=== PATIENT | male | born 2000 | race Caucasian/White ===

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

== ENCOUNTER 2018-01-07 10:20 | Emergency (ER) | payer SELFPAY ==
[~2018-01-07] VITALS: Ht 180.3 cm; Wt 104.3 kg
[~2018-01-07 10:20] MED LIST changes: +NAPR-1071 PO
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
== END 2018-01-07 11:00 | disposition home or self-care (01) ==
LOC: EDUNIT# 10:20 → ER 10:22
DX: S60.221A Contusion of right hand, initial encounter (principal); J45.909 Unspecified asthma, uncomplicated; Z90.49 Acquired absence of other specified parts of digestive tract; Z90.89 Acquired absence of other organs; Z87.81 Personal history of (healed) traumatic fracture; Z87.19 Personal history of other diseases of the digestive system; Z98.818 Other dental procedure status; Z77.22 Contact with and (suspected) exposure to environmental tobacco smoke (acute) (chronic); W22.09XA Striking against other stationary object, initial encounter
CPT/HCPCS: 73130

== ENCOUNTER 2018-05-13 10:10 | Emergency (ER) | payer SELFPAY ==
[~2018-05-13 10:10] MED LIST changes: -BENZ-13 PO; +BENZ100C18 PO
== END 2018-05-13 10:59 | disposition left against medical advice (07) ==
LOC: EDUNIT# 10:10 → ER 10:11
DX: M54.9 Dorsalgia, unspecified (principal)

== ENCOUNTER 2018-05-30 08:01 | Emergency (ER) | payer SELFPAY ==
[~2018-05-30] VITALS: Ht 180.3 cm; Wt 104.3 kg
[2018-05-30] MEDS ORDERED: GABA-488 (08:21)
[2018-05-30] MEDS ORDERED: NAPR-915 (08:21)
--- NOTE | 2018-05-30 08:44 | ED Integumentary General ---
General Chief Complaint: General Problems/Pain Stated Complaint: LIP SWELLING Nursing Triage Note: ARRIVED VIA AMB TO ROOM 06. STATES HE POPPED A PIMPLE ABOVE HIS LIP YESTERDAY AND IT KEEPS COMING TO A BROTHERS. TODAY HE WOKE UP WITH A SWOLLEN UPPER LIP. Source: patient Exam Limitations: no limitations History of Present Illness Date Seen by Provider: May 30, 2018 Time Seen by Provider: 08:42 Initial Comments The patient is a 17-year-old white male who reports that he had what appeared to be a pimple on his upper lip above the vermilion border. This was mostly in the midline. He popped it and yellow material came out. This recurred several times yesterday and he repeated the process. This morning when he awakened he noted pain and considerable swelling of his upper lip. There did not appear to be a head this morning. Timing/Duration: yesterday Possible Cause: no cause identified Associated Symptoms: swelling/mass/lumps Allergies and Home Medications Allergies Coded Allergies: hydrocodone (Verified Allergy, Severe, RASH , 05/30/18) Patient Home Medication List Home Medication List Reviewed: Yes Review of Systems Review of Systems Constitutional: see HPI EENTM: see HPI Skin: see HPI Past Flqufmt-Qkxeba-Ybxypn Hx Patient Social History Alcohol Use: Rarely Uses Alcohol Beverage of Choice: Beer Recreational Drug Use: Yes Drug of Choice: POT 2nd Hand Smoke Exposure: No (MOM SMOKES) Recent Foreign Travel: No Contact w/Someone Who Travel: No Recent Infectious Disease Expo: No Recent Hopitalizations: No Immunizations Up To Date Tetanus Booster (TDap): Less than 5yrs PED Vaccines UTD: Yes Date of Influenza Vaccine: Apr 01, 2016 Seasonal Allergies Seasonal Allergies: Yes Past Medical History Surgeries: Yes (DENTAL SURGERY TODDLER. hematoma evacuation 09/29/[address] marcano.) Adenoidectomy, Appendectomy, Tonsillectomy Respiratory: Yes Asthma Cardiac: No Neurological: No Reproductive Disorders: No Sexually Transmitted Disease: No Genitourinary: No Gastrointestinal: No Chronic Constipation Musculoskeletal: No Fractures Endocrine: No HEENT: No Tonsilitis Cancer: No Psychosocial: No Integumentary: No Blood Disorders: No Family Medical History Family history: Diabetes mellitus grandmother paternal aunt aunt uncle paternal No Pertinent Family Hx Physical Exam Vital Signs Vital Signs - First Documented 05/30/18 08:10 Temp 99.2 Pulse 84 Resp 18 B/P (MAP) 145/90 O2 Delivery Room Air Capillary Refill : General Appearance: mild distress Neck: full range of motion Cardiovascular: normal peripheral pulses, regular rate, rhythm, no edema, no gallop, no JVD, no murmur Respiratory: chest non-tender, lungs clear, normal breath sounds, no respiratory distress, no accessory muscle use Comments There is a nodule palpated in the upper lip just left of the midline about the size of a grape. There is a punctate area consistent with his drainage attempts yesterday. The upper lip is quite swollen in the vermilion portion. Procedures/Interventions I&D : Site: mid upper lip Blade Size: 11 I & D Procedure: betadine prep Packing/Drain: Idoform 07/05 Progress The lip was prepped with Hibiclens. It was injected with 3 mL of 1 percent Xylocaine and a 25-gauge needle. A vertically oriented small incision was made with an 11 scalpel blade. The opening was enlarged with a hemostat. A minimum of hemo-purulent material was obtained. The wound was swabbed for culture. One plus inch of iodoform, 1/4 inch, was placed in the wound. Progress/Results/Core Measures Results/Orders My Orders Orders - EDMAR BAR MD Ibuprofen Tablet (Motrin Tablet) (05/30/18 09:15) Lidocaine 1% Inj 20 Ml (Xylocaine 1% Inj (05/30/18 09:45) Ceftriaxone For Iv Use (Rocephin For I (05/30/18 10:15) Medications Given in ED Current Medications Medications Dose Ordered Sig/Maria Ines Route Start Time Stop Time Status Last Admin Dose Admin Ibuprofen 600 mg ONCE ONCE PO 05/30/18 09:15 05/30/18 09:16 DC 05/30/18 09:23 600 MG Lidocaine HCl 20 ml ONCE ONCE INJ 05/30/18 09:45 05/30/18 09:47 DC 05/30/18 10:13 3 ML Vital Signs/I&O 05/30/18 08:10 Temp 99.2 Pulse 84 Resp 18 B/P (MAP) 145/90 O2 Delivery Room Air Departure Impression Primary Impression: abscess/cellulitis upper lip Disposition: 01 HOME, SELF-CARE Condition: Improved Departure-Patient Inst. Decision time for Depature: 10:15 Referrals: PEYTON PAIGE MD (PCP/Family) Primary Care Physician Add. Discharge Instructions: All discharge instructions reviewed with patient and/or family. Voiced understanding. Apply warm compress to wound 4 times a day. Begin oral antibiotics tomorrow. If swelling increases appreciably or if you began to have occlusion at the nose return to the emergency room. Scripts Cefdinir (Cefdinir) 300 Mg Capsule 300 MG PO twice a day, #14 CAP Prov: EDMAR BAR MD 05/30/18 EDMAR BAR MD May 30, 2018 08:44
[2018-05-30] MEDS ORDERED: IBUPROFEN 600 MG (MOTRIN) TAB PO ONE (09:15)
[2018-05-30] MEDS ORDERED: LIDOCAINE 1% INJ 20 ML 20 ML VIAL INJ ONE (09:45)
[2018-05-30] MEDS ORDERED: cefTRIAXone FOR IV USE 1,000 MG in NS (IVPB) 50 ML IV ONE (10:15)
[2018-05-30] MEDS ORDERED: CEFD300C3 PO (10:19)
[2018-05-31] MEDS ORDERED: SULF1TAB35 PO (11:06)
== END 2018-05-30 11:12 | disposition home or self-care (01) ==
LOC: ER 08:01 → EDUNIT# 08:01 → ER 11:12
DX: K13.0 Diseases of lips (principal); J45.909 Unspecified asthma, uncomplicated; F12.10 Cannabis abuse, uncomplicated; Z88.5 Allergy status to narcotic agent; Z90.89 Acquired absence of other organs; Z87.19 Personal history of other diseases of the digestive system
CPT/HCPCS: 10061; 87070; 87077; 87186; 87205; 96372

== ENCOUNTER 2018-05-31 09:26 | Emergency (ER) | payer SELFPAY ==
[~2018-05-31] VITALS: Ht 182.9 cm; Wt 104.3 kg
[~2018-05-31 09:26] MED LIST changes: +GABA-488; +NAPR-915
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
--- OUTSIDE RECORDS SUMMARY | 2018-05-31 09:32 | XMS REPORT ---
Author Author MARCOS CALDWELL Organization [facility] Address [address] [place] [address] Phone Unavailable Care Team Providers Care Care Nurse Rn Name Role Phone MARCOS CALDWELL Unavailable Unavailable PROBLEMS Type Condition ICD9-CM Code DQR97-RT Code Onset Dates Condition Status SNOMED Code Problem Obesity, unspecified 278.00 Active [id number] ALLERGIES No Known Allergies ENCOUNTERS Encounter Location Date Diagnosis [facility] [id number] [place] [address] October, Ear pain, left H92.02 [facility] [id number] [place] [address] Sep, Sore throat J02.9 [facility] [id number] [place] [address] Jun, Acute upper respiratory infection, unspecified J06.9 ; Other viral agents as the cause of diseases classified elsewhere B97.89 and Sore throat J02.9 [place] [id number] [place] [address] 9134 Dec, Pain of right lower leg 729.5 [id number] [place] [address] 10049- 8230 Dec, Pain of right lower leg 729.5 [id number] [place] [address]123- 6882 Dec, Right leg pain 729.5 [id number] [place] [address]- 1201 Dec, Exertional compartment syndrome of right lower extremity 958.92 and Pain of right lower leg 729.5 [id number] [place] [address] 7312 Sep, [facility] [place] [facility] [address] [id number] [place] [address]- 4321 Sep, [facility] [place] [facility] [address] [id number] [place] [address]- 7897 Jun, [facility] [place] [facility] [address] [id number] [place] [address] Jun, [facility] [place] [facility] [address] [id number] [place] [address]- 4197 May, [facility] [place] [facility] [address] [id number] [place] [address]- 6923 May, [facility] [place] [facility] [address] [id number] [place] [address]- 0332 Dec, [facility] [place] [facility] [address] [facility] [id number] [place] [address]- 7512 Dec, [facility] [place] [facility] [address] [id number] [place] [address]- 3759 Dec, [facility] [place] [facility] [address] [id number] [place] [address]- 3570 Dec, [facility] [place] [facility] [address] [facility] [id number] [place] [address]- 2691 Nov, [facility] [place] [facility] [address] [id number] [place] [address]- 8168 Nov, [facility] [place] [facility] [address] [id number] [place] [address]- 9798 Nov, [facility] [place] [facility] [address] [id number] [place] [address]- 6325 Nov, [facility] [place] [facility] [address] [id number] [place] [address]- 3052 Aug, [facility] [place] [facility] [address] [id number] [place] [address]- 2940 Aug, [facility] [place] [facility] [address] [id number] [place] [address]- 6337 May, [facility] [address] [id number] [place] [address]- 8846 May, [facility] [place] [facility] [address] [id number] [place] [address] 2546 Jan, [facility] [place] [facility] [address] [id number] [place] [address]- 2326 October, [facility] [place] [facility] [address] [id number] [place] [address]- 5437 Sep, [facility] [place] [facility] [address] [id number] [place] [address]- 5560 Aug, [facility] [place] [facility] [address] [id number] [place] [address]- 7930 Jul, [facility] [address] [id number] [place] [address]- 9070 Jul, [facility] [address] [id number] [place] [address]- 5360 Jul, [facility] [place] [facility] [address] [id number] [place] [address]- 9770 October, [facility] [address] [id number] [place] [address]- 5245 Sep, [facility] [address] [id number] [place] [address]- 8756 Aug, [facility] [place] [facility] [address] [id number] [place] [address]- 2993 Mar, [facility] [place] [facility] [address] [id number] [place] [address]- 0121 Jan, [facility] [place] [facility] [address] [id number] [place] [address]- 8082 Jul, [facility] [place] [facility] [address] [id number] [place] [address]- 4516 Mar, [facility] [address] [facility] [id number] [place] [address]- 7574 October, [facility] [address] [facility] [id number][place] [address]- 5526 Jun, [facility] [address] [facility] [id number][place] [address]- 6046 Jun, [facility] [address] [facility] [id number][place] [address]- 6566 Aug, [facility] [address] [facility] [id number][place] [address]- 3766 May, [facility] [address] [facility] [id number][place] [address]- 3126 May, IMMUNIZATIONS No Known Immunizations SOCIAL HISTORY Never Assessed REASON FOR VISIT sore throat/sinus pressure x 3 days, denies fever sanjay daugherty PLAN OF CARE Activity Details Follow Up prn Reason: VITAL SIGNS Height 70 in 2017-10-08 Weight 253.6 lbs 2017-10-08 Temperature 97.6 degrees Fahrenheit 2017-10-08 Heart Rate 68 bpm 2017-10-08 Respiratory Rate 18 2017-10-08 BMI 36.38 kg/m2 2017-10-08 Blood pressure systolic 118 mmHg 2017-10-08 Blood pressure diastolic 66 mmHg 2017-10-08 MEDICATIONS Medication Instructions Dosage Frequency Start Date End Date Duration Status Amoxicillin 875 MG Orally every 12 hrs 1 tablet 12h Sep, Sep, 10 day(s) Active Sudafed 12 Hour 120 MG Orally once daily 1 tablet as needed 24h Jun, 07 days Not-Taking RESULTS Name Result Date Reference Range STREP A (IN HOUSE) 2017-10-08 STREP A negative Control + Lot # [id number] Exp date 04/12/20 PROCEDURES Procedure Date Ordered Result Body Site STREP A ASSAY W/OPTIC October 08, 2017 INSTRUCTIONS MEDICATIONS ADMINISTERED No Known Medications MEDICAL (GENERAL) HISTORY Type Description Date Surgical History tonsils and adnoids out 2001 Surgical History dental surgery 2002 Surgical History appendectomy 2016 Hospitalization History pnemonia-- more observation stayed 2 nights 2013
--- OUTSIDE RECORDS SUMMARY | 2018-05-31 09:32 | XMS REPORT ---
Author Author DUSTY MENESES Organization [facility] Address [address] [place] [address] Care Team Providers Care Sock Lining Examiner Name Role Phone ZAIRA DUSTY Unavailable PROBLEMS Type Condition ICD9-CM Code XJP59-XL Code Onset Dates Condition Status SNOMED Code Problem Obesity, unspecified 278.00 Active 250227801 ALLERGIES No Known Allergies ENCOUNTERS Encounter Location Date Diagnosis [facility] [id number] [place] [address] October, Ear pain, left H92.02 [facility] [id number] [place] [address] Sep, Sore throat J02.9 [facility] [id number] [place] [address]65 [address]72 Jun, Acute upper respiratory infection, unspecified J06.9 ; Other viral agents as the cause of diseases classified elsewhere B97.89 and Sore throat J02.9 [place] [address] [place] [address]31- 2142 Dec, Pain of right lower leg 729.5 [place] [id number] [place] [address]24- 5484 Dec, Pain of right lower leg 729.5 [place] [id number] [place] [address] 73896- 3435 Dec, Right leg pain 729.5 [place] [place] [address] [place] [address] 35930- 0039 Dec, Exertional compartment syndrome of right lower extremity 958.92 and Pain of right lower leg 729.5 [place] [id number] [place] [address]- 79[address] 14 Sep, 2014 [facility] [address] [id number] [place] [address]- 1355 Sep, [facility] [place] [facility] [address] [id number] [place] [address] Jun, [facility] [address] [id number] [place] [address]- 6946 Jun, [facility] [place] [facility] [address] [id number] [place] [address]- 3307 May, [facility] [address] [id number] [place] [address]- 8512 May, [facility] [place] [facility] [address] [id number] [place] [address]- 3557 Dec, [facility] [place] [facility] [address] [id number] [place] [address]- 1055 Dec, [facility] [place] [facility] [address] [id number] [place] [address]- 6351 Dec, [facility] [place] [facility] [address] [id number] [place] [address]- 6803 Dec, [facility] [address] [id number] [place] [address]- 6384 Nov, [facility] [place] [facility] [address] [id number] [place] [address]- 5968 Nov, [facility] [place] [facility] [address] [id number] [place] [address]- 1856 Nov, [facility] [place] [facility] [address] [id number] [place] [address]- 2255 Nov, [facility] [place] [facility] [address] [id number] [place] [address]- 6983 Aug, [facility] [place] [facility] [address] [id number] [place] [address]- 5083 Aug, [facility] [address] [id number] [place] [address]- 9413 May, [facility] [place] [facility] [address] [id number] [place] [address]- 7726 May, [facility] [address] [id number] [place] [address]- 2396 Jan, [facility] [place] [facility] [address] [id number] [place] [address]- 0836 October, [facility] [address] [id number] [place] [address]- 1556 Sep, [facility] [place] [facility] [address] [id number] [place] [address]- 4466 Aug, [facility] [place] [facility] [address] [id number] [place] [address]- 8236 Jul, [facility] [address] [id number] [place] [address]- 1226 Jul, [facility] [address] [id number] [place] [address]- 9875 Jul, [facility] [address] [id number] [place] [address]- 6416 October, [facility] [address] [id number] [place] [address]- 2326 Sep, [facility] [place] [facility] [address] [id number] [place] [address]- 2086 Aug, [facility] [place] [facility] [address] [id number] [place] [address]- 3416 Mar, [facility] [place] [facility] [address] [id number] [place] [address]- 8186 Jan, [facility] [place] [facility] [address] [id number] [place] [address]- 0096 Jul, [facility] [place] [facility] [address] [id number] [address] 15 Mar, 2009 [facility] [address] [facility] [id number], [place] [address]- 7628 October, [facility] [address] [id number] [address]345 Jun, [facility] [address] [id number], [place] [address]- 3143 Jun, [facility] [address] [id number], [place] [address]- 2934 Aug, [facility] [address] [id number] [address] May, [facility] [address] [id number] [address]- 4522 May, IMMUNIZATIONS No Known Immunizations SOCIAL HISTORY Never Assessed REASON FOR VISIT Ear pain Pt c/o L ear pain for 2-3 days SKYLA Esqueda PLAN OF CARE Activity Details Follow Up prn Reason: VITAL SIGNS Height 70 in 2017-11-22 Weight 251.2 lbs 2017-11-22 Temperature 97.1 degrees Fahrenheit 2017-11-22 Heart Rate 76 bpm 2017-11-22 Respiratory Rate 18 2017-11-22 BMI 36.04 kg/m2 2017-11-22 Blood pressure systolic 116 mmHg 2017-11-22 Blood pressure diastolic 64 mmHg 2017-11-22 MEDICATIONS Medication Instructions Dosage Frequency Start Date End Date Duration Status Sudafed 12 Hour 120 MG Orally once daily 1 tablet as needed 24h Jun, 07 days Not-Taking RESULTS No Results PROCEDURES No Known procedures INSTRUCTIONS MEDICATIONS ADMINISTERED No Known Medications MEDICAL (GENERAL) HISTORY Type Description Date Surgical History tonsils and adnoids out 2001 Surgical History dental surgery 2002 Surgical History appendectomy 2016 Hospitalization History pnemonia-- more observation stayed 2 nights 2013
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
[2018-05-31] MEDS ORDERED: ACETAMINOPHEN 500 MG TAB (TYLENOL) PO ONE (10:45)
[2018-05-31] MEDS ORDERED: TRIM/SULFAMETH 160/800 (SEPTRA DS) TAB PO ONE (10:45)
[2018-05-31] MEDS ORDERED: IBUPROFEN 800 MG (MOTRIN) TAB PO ONE (10:45)
--- NOTE | 2018-05-31 10:55 | ED Integumentary General ---
General Chief Complaint: Skin/Wound Problems Stated Complaint: LIP SWELLING;WOUND CHECK Nursing Triage Note: WAS SEEN HERE YESTERDAY BY DR BAR ET PUT ON A ABX AND PAIN MEDS. PT STATES THE PAIN IS NOT GETTING BETTER AND HE THINKS HIS LIP IS MORE SWOLLEN. PT HAS NOT HAD ANY OF HIS MEDS FILLED. Source: patient, old records Exam Limitations: no limitations History of Present Illness Date Seen by Provider: May 31, 2018 Time Seen by Provider: 10:37 Initial Comments This 17-year-old young man presents to the emergency room with worsening symptoms of upper lip abscess. He was seen in this ER yesterday by Dr. Bar who performed incision and drainage. Not much material came from the wound at that time. Wound had been packed yesterday. Packing fell out in the night. Patient was doing some warm compresses but the opening to the wound dried and closed off. He now complains of worsening swelling of the area under his nose where the abscesses as well as his upper lip. He has no fever. Pain is not well controlled. Patient received an injection of Rocephin in the ER yesterday. He had prescriptions for Cefdinir and pain medications but did not fill those due to financial constraints. A culture was performed yesterday but results are not available yet. Allergies and Home Medications Allergies Coded Allergies: hydrocodone (Verified Allergy, Severe, RASH , 05/30/18) Home Medications Cefdinir 300 Mg Capsule, 300 MG PO twice a day Prescribed by: EDMAR BAR on 05/30/18 1019 Sulfamethoxazole/Trimethoprim 1 Each Tablet, 1 EACH PO TID Prescribed by: JENNIFER LOPEZ on 05/31/18 1106 Patient Home Medication List Home Medication List Reviewed: Yes Review of Systems Review of Systems Constitutional: no symptoms reported EENTM: see HPI Respiratory: no symptoms reported Cardiovascular: no symptoms reported Gastrointestinal: no symptoms reported Genitourinary: no symptoms reported Musculoskeletal: no symptoms reported Skin: see HPI Psychiatric/Neurological: No Symptoms Reported Endocrine: No Symptoms Reported Hematologic/Lymphatic: No Symptoms Reported Past Kzabfqz-Laetqn-Nqntig Hx Patient Social History Alcohol Use: Denies Use Alcohol Beverage of Choice: Beer Recreational Drug Use: Yes Drug of Choice: POT 2nd Hand Smoke Exposure: No (MOM SMOKES) Recent Foreign Travel: No Contact w/Someone Who Travel: No Recent Infectious Disease Expo: No Recent Hopitalizations: No Immunizations Up To Date Tetanus Booster (TDap): Less than 5yrs PED Vaccines UTD: Yes Date of Influenza Vaccine: Apr 01, 2016 Seasonal Allergies Seasonal Allergies: Yes Past Medical History Surgeries: Yes (DENTAL SURGERY TODDLER. hematoma evacuation 09/29/[address] marcano.) Adenoidectomy, Appendectomy, Tonsillectomy Respiratory: Yes Asthma Cardiac: No Neurological: No Reproductive Disorders: No Sexually Transmitted Disease: No Genitourinary: No Gastrointestinal: No Chronic Constipation Musculoskeletal: No Fractures Endocrine: No HEENT: No Tonsilitis Cancer: No Psychosocial: No Integumentary: No Blood Disorders: No Family Medical History Family history: Diabetes mellitus grandmother paternal aunt aunt uncle paternal No Pertinent Family Hx Physical Exam Vital Signs Vital Signs - First Documented 05/31/18 05/31/18 09:33 12:02 Temp 98.5 Pulse 87 Resp 16 B/P (MAP) 139/75 Pulse Ox 98 O2 Delivery Room Air Capillary Refill : General Appearance: WD/WN, no apparent distress HEENT: PERRL/EOMI, other (Indurated abscess between the upper lip and nose. Edema of the upper lip.) Neck: normal inspection Cardiovascular: regular rate, rhythm, no murmur Respiratory: normal breath sounds, no respiratory distress Skin: normal color, warm/dry, other (See above) Progress/Results/Core Measures Results/Orders My Orders Orders - JENNIFER FISHER MD Ibuprofen Tablet (Motrin Tablet) (05/31/18 10:45) Acetaminophen Tablet (Tylenol Tablet) (05/31/18 10:45) Sulfamethoxazole/Trimet Ds Tab (Bactrim (05/31/18 10:45) Clindamycin Injection (Cleocin Injection (05/31/18 11:00) Mupirocin Ointment (Bactroban Ointment (05/31/18 21:00) Mupirocin Ointment (Bactroban Ointment (05/31/18 11:57) Medications Given in ED Current Medications Medications Dose Ordered Sig/Maria Ines Route Start Time Stop Time Status Last Admin Dose Admin Acetaminophen 1,000 mg ONCE ONCE PO 05/31/18 10:45 05/31/18 10:46 DC 05/31/18 10:53 1,000 MG Clindamycin Phosphate 600 mg ONCE ONCE IM 05/31/18 11:00 05/31/18 11:01 DC 05/31/18 11:10 600 MG Ibuprofen 800 mg ONCE ONCE PO 05/31/18 10:45 05/31/18 10:47 DC 05/31/18 10:54 800 MG Trimethoprim/ Sulfamethoxazole 1 ea ONCE ONCE PO 05/31/18 10:45 05/31/18 10:46 DC 05/31/18 10:53 1 EA Vital Signs/I&O 05/31/18 05/31/18 09:33 12:02 Temp 98.5 Pulse 87 77 Resp 16 16 B/P (MAP) 139/75 Pulse Ox 98 O2 Delivery Room Air Room Air Progress Progress Note : Progress Note Skin over the abscess was cleaned with alcohol. The crusting and scab over the wound was then lifted with a scalpel. A significant amount of purulent drainage was expressed. A warm compress soaked with water and chlorhexidine soap was applied. Patient was treated with Bactrim DS, ibuprofen, and Tylenol. Patient was also given a clindamycin injection. I expressed the importance and necessity of picking up his antibiotics and completing them. His Cefdinir was canceled and replaced with Bactrim DS which will be more economical for him as well. Departure Impression Primary Impression: Facial abscess Additional Impressions: Cellulitis of lip Encounter for incision and drainage procedure Disposition: 01 HOME, SELF-CARE Condition: Improved Departure-Patient Inst. Decision time for Depature: 11:02 Referrals: PEYTON PAIGE MD (PCP/Family) Primary Care Physician Add. Discharge Instructions: Use warm moist compresses as often as possible to keep the abscess soft, open, and draining. Apply the Bactroban ointment as often as needed to keep the wound soft and open. Complete your antibiotics as prescribed. Start them this evening at suppertime. It is extremely important that she get these antibiotics and complete them. Follow-up with a primary care provider soon as possible and review culture results. Return to care if you have worsening symptoms, especially if you develop fevers over 100. For pain you may take either ibuprofen up to 600 mg every 6 hours or naproxen as prescribed. You may also add Tylenol up to 1000 mg every 6 hours as needed for additional pain relief. All discharge instructions reviewed with patient and/or family. Voiced understanding. Scripts Sulfamethoxazole/Trimethoprim (Bactrim Ds Tablet) 1 Each Tablet 1 EACH PO TID, #20 TAB Prov: JENNIFER FISHER MD 05/31/18 Copy Copies To 1: PEYTON PAIGE MD, JOSHUA T MD May 31, 2018 10:55
[2018-05-31] MEDS ORDERED: CLINDAMYCIN 600 MG/4ML (CLEOCIN) VIAL IM ONE (11:00)
[2018-05-31] MEDS ORDERED: SULF1TAB35 PO (11:06)
[2018-05-31] MEDS ORDERED: MUPIROCIN 2% OINT 22 GM (BACTROBAN) TUBE ONE (11:57)
[2018-05-31] MEDS ORDERED: MUPIROCIN 2% OINT 22 GM (BACTROBAN) TUBE TOP SCH (21:00)
== END 2018-05-31 12:02 | disposition home or self-care (01) ==
LOC: EDUNIT# 09:26 → ER 09:27
DX: L02.01 Cutaneous abscess of face (principal); K13.0 Diseases of lips; J45.909 Unspecified asthma, uncomplicated; F12.10 Cannabis abuse, uncomplicated; Z88.5 Allergy status to narcotic agent; Z87.19 Personal history of other diseases of the digestive system; Z90.89 Acquired absence of other organs; Z90.49 Acquired absence of other specified parts of digestive tract
CPT/HCPCS: 96372; 99284

== ENCOUNTER 2018-07-29 06:59 | Emergency (ER) | payer SELFPAY ==
[~2018-07-29] VITALS: Ht 180.3 cm; Wt 108.9 kg
[~2018-07-29 06:59] MED LIST changes: +SULF1TAB35 PO
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
--- NOTE | 2018-07-29 08:27 | Diagnostic Imaging Report ---
PA and lateral chest at 0815 hours. INDICATION: Shortness of breath. FINDINGS: The heart size is within normal limits and stable when compared to 11/13/2007. The lungs are clear. There is no evidence for failure, pneumonia or for pleural effusion. Mediastinum is not widened. The osseous structures are intact. IMPRESSION: There is no evidence for an acute cardiopulmonary abnormality. Dictated by: Dictated on workstation # [id number]
[2018-07-29 09:20] VITALS: BP 127/86
== END 2018-07-29 09:23 | disposition home or self-care (01) ==
LOC: EDUNIT# 06:59 → ER 07:00
DX: R06.02 Shortness of breath (principal); J45.909 Unspecified asthma, uncomplicated; F12.10 Cannabis abuse, uncomplicated; Z88.5 Allergy status to narcotic agent; Z87.19 Personal history of other diseases of the digestive system; Z90.49 Acquired absence of other specified parts of digestive tract; Z90.89 Acquired absence of other organs
CPT/HCPCS: 71046; 93005

== ENCOUNTER 2019-02-16 13:02 | Emergency (ER) | payer SELFPAY ==
[~2019-02-16] VITALS: Ht 180.3 cm; Wt 108.9 kg
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
[2019-02-16] MEDS ORDERED: CEPH-507 PO (13:57)
[2019-02-16] MEDS ORDERED: TRAM-42 PO (13:57)
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
[2019-02-16 14:05] VITALS: BP 122/89
== END 2019-02-16 14:07 | disposition home or self-care (01) ==
LOC: EDUNIT# 13:02 → ER 13:04
DX: S60.552A Superficial foreign body of left hand, initial encounter (principal); J45.909 Unspecified asthma, uncomplicated; Z87.19 Personal history of other diseases of the digestive system; Z88.5 Allergy status to narcotic agent; Z90.49 Acquired absence of other specified parts of digestive tract; W45.8XXA Other foreign body or object entering through skin, initial encounter
CPT/HCPCS: 73130

== ENCOUNTER 2019-03-30 18:04 | Emergency (ER) | payer SELFPAY ==
[~2019-03-30] VITALS: Ht 182.8 cm; Wt 109.0 kg
[~2019-03-30 18:04] MED LIST changes: +CEPH-507 PO
[2019-03-30] MEDS ORDERED: LACTATED RINGERS 1,000 ML IV ONE (18:33)
[2019-03-30] MEDS ORDERED: FAMOTIDINE 20MG/2ML IV (PEPCID) IV STA (18:33)
[2019-03-30 18:40] LABS: BASOPHILS % (AUTO) 0 % (0-10); EOSINOPHILS # (AUTO) 0.1 10^3/uL (0.0-0.3); EOSINOPHILS % (AUTO) 1 % (0-10); HEMATOCRIT 45 % (40-54); HEMOGLOBIN 15.3 G/DL (13.3-17.7); LYMPHOCYTES % (AUTO) 26 % (12-44); MEAN CORPUSCULAR HEMOGLOBIN 28 PG (25-34); MEAN CORPUSCULAR HGB CONC 34 G/DL (32-36); MEAN CORPUSCULAR VOLUME 84 FL (80-99); MEAN PLATELET VOLUME 12.8 FL (7.4-10.4); MONOCYTES # (AUTO) 0.6 X 10^3 (0.0-1.0); MONOCYTES % (AUTO) 8 % (0-12); NEUTROPHILS # (AUTO) 4.9 X 10^3 (1.8-7.8); NEUTROPHILS % (AUTO) 64 % (42-75); PLATELET COUNT 147 10^3/uL (130-400); WHITE BLOOD COUNT 7.6 10^3/uL (4.3-11.0)
--- NOTE | 2019-03-30 18:41 | ED Abdominal Pain ---
General Chief Complaint: Abdominal/GI Problems Stated Complaint: ABD PAIN Source of Information: Patient, Family Exam Limitations: No Limitations History of Present Illness Date Seen by Provider: Mar 30, 2019 Time Seen by Provider: 18:24 Initial Comments Patient presents to ER by private conveyance with chief complaint of moderate to severe abdominal pain in his epigastric and right upper quadrant region after eating a cheeseburger at his mother's house tonight. He says for the past several weeks is been getting worse where his pain keeps him from eating throughout the day and he just eats about 1 meal a day. He had nausea and vomiting times one tonight. No fevers or chills, diarrhea. He has chronic constipation since he was child. He has had no abdominal surgeries or no known medical history. He has not taken anything for the pain or nausea. He has not seen anybody to help work this up. Allergies and Home Medications Allergies Coded Allergies: hydrocodone (Verified Allergy, Severe, RASH , 05/30/18) Home Medications Cefdinir 300 Mg Capsule, 300 MG PO twice a day Prescribed by: EDMAR BAR on 05/30/18 1019 Cephalexin 500 Mg Capsule, 500 MG PO TID Prescribed by: WALI MAHARAJ on 02/16/19 1357 Omeprazole 20 Mg Tablet.dr, 20 MG PO BID Prescribed by: MILANA NOONAN on 03/30/192018 Ondansetron 4 Mg Tab.rapdis, 4 MG PO Q6H PRN for NAUSEA/VOMITING-1ST LINE Prescribed by: MILANA NOONAN on 03/30/192018 Sulfamethoxazole/Trimethoprim 1 Each Tablet, 1 EACH PO TID Prescribed by: JENNIFER LOPEZ on 05/31/18 1106 Tramadol HCl 50 Mg Tablet, 50 MG PO Q6H PRN for PAIN-MODERATE Prescribed by: WALI MAHARAJ on 02/16/19 1357 Patient Home Medication List Home Medication List Reviewed: Yes Review of Systems Review of Systems Constitutional: No chills, No fever EENTM: No Blurred Vision, No Double Vision Respiratory: Denies Cough, Denies Shortness of Air Cardiovascular: Denies Chest Pain, Denies Lightheadedness Gastrointestinal: Constipated; Denies Diarrhea; Nausea, Vomiting Past Ejusjym-Pmbmog-Rhebvl Hx Patient Social History Alcohol Use: Occasionally Uses Alcohol Beverage of Choice: Beer Recreational Drug Use: Yes Drug of Choice: POT Smoking Status: Never a Smoker 2nd Hand Smoke Exposure: No (MOM SMOKES) Recent Foreign Travel: No Contact w/Someone Who Travel: No Recent Hopitalizations: No Immunizations Up To Date Tetanus Booster (TDap): Less than 5yrs PED Vaccines UTD: Yes Date of Influenza Vaccine: Apr 01, 2016 Seasonal Allergies Seasonal Allergies: Yes Past Medical History Surgeries: Yes (DENTAL SURGERY TODDLER. hematoma evacuation 09/29/[address] marcano.) Adenoidectomy, Appendectomy, Tonsillectomy Respiratory: Yes Asthma Cardiac: No Neurological: No Reproductive Disorders: No Sexually Transmitted Disease: No Genitourinary: No Gastrointestinal: No Chronic Constipation Musculoskeletal: No Fractures Endocrine: No HEENT: No Tonsilitis Cancer: No Psychosocial: No Integumentary: No Blood Disorders: No Family Medical History Family history: Diabetes mellitus grandmother paternal aunt aunt uncle paternal No Pertinent Family Hx Physical Exam Vital Signs Vital Signs - First Documented 03/30/19 18:10 Temp 36.4 Pulse 70 Resp 18 B/P (MAP) 105/55 (72) Pulse Ox 99 O2 Delivery Room Air Capillary Refill : Height/Weight/BMI Height: 5'11.00" Weight: 240lbs. 0.0oz. [id number]; 28.12 BMI Method:Stated General Appearance: WD/WN, mild distress HEENT: PERRL/EOMI, pharynx normal Neck: full range of motion, normal inspection Respiratory: normal breath sounds, no respiratory distress, no accessory muscle use Cardiovascular: normal peripheral pulses, regular rate, rhythm Peripheral Pulses: 2+ Radial Pulses (R), 2+ Radial Pulses (L) Gastrointestinal: normal bowel sounds, soft, tenderness (epigastric and right upper quadrant), other (Morin's sign positive) Progress/Results/Core Measures Results/Orders Lab Results Laboratory Tests Test 03/30/19 18:18 Range/Units White Blood Count 7.6 4.3-11.0 10^3/uL Red Blood Count 5.41 4.35-5.85 10^6/uL Hemoglobin 15.3 13.3-17.7 G/DL Hematocrit 45 40-54 % Mean Corpuscular Volume 84 80-99 FL Mean Corpuscular Hemoglobin 28 25-34 PG Mean Corpuscular Hemoglobin Concent 34 32-36 G/DL Red Cell Distribution Width 13.0 10.0-14.5 % Platelet Count 147 130-400 10^3/uL Mean Platelet Volume 12.8 H 7.4-10.4 FL Neutrophils (%) (Auto) 64 42-75 % Lymphocytes (%) (Auto) 26 12-44 % Monocytes (%) (Auto) 8 0-12 % Eosinophils (%) (Auto) 1 0-10 % Basophils (%) (Auto) 0 0-10 % Neutrophils # (Auto) 4.9 1.8-7.8 X 10^3 Lymphocytes # (Auto) 2.0 1.0-4.0 X 10^3 Monocytes # (Auto) 0.6 0.0-1.0 X 10^3 Eosinophils # (Auto) 0.1 0.0-0.3 10^3/uL Basophils # (Auto) 0.0 0.0-0.1 10^3/uL Sodium Level 140 135-145 MMOL/L Potassium Level 4.1 3.6-5.0 MMOL/L Chloride Level 105 98-107 MMOL/L Carbon Dioxide Level 27 21-32 MMOL/L Anion Gap 8 5-14 MMOL/L Blood Urea Nitrogen 13 7-18 MG/DL Creatinine 0.98 0.60-1.30 MG/DL Estimat Glomerular Filtration Rate > 60 BUN/Creatinine Ratio 13 Glucose Level 77 70-105 MG/DL Calcium Level 9.7 8.5-10.1 MG/DL Corrected Calcium 8.5-10.1 MG/DL Total Bilirubin 0.6 0.1-1.0 MG/DL Aspartate Amino Transf (AST/SGOT) 69 H 5-34 U/L Alanine Aminotransferase (ALT/SGPT) 101 H 0-55 U/L Alkaline Phosphatase 67 40-136 U/L C-Reactive Protein High Sensitivity 0.19 0.00-0.50 MG/DL Total Protein 7.8 6.4-8.2 GM/DL Albumin 4.9 H 3.2-4.5 GM/DL Lipase 106 H 8-78 U/L My Orders Orders - MILANA NOONAN Ed Iv/Invasive Line Start (03/30/19 18:33) Lactated Ringers (Lr 1000 Ml Iv Solution (03/30/19 18:33) Ondansetron Injection (Zofran Injectio (03/30/19 18:45) Lidocaine 2% Viscous 15 Ml (Xylocaine Vi (03/30/19 18:45) Antacid Suspension (Mylanta Suspension (03/30/19 18:45) Famotidine Injection (Pepcid Injection) (03/30/19 18:33) Cbc With Automated Diff (03/30/19 18:33) Comprehensive Metabolic Panel (03/30/19 18:33) Hs C Reactive Protein (03/30/19 18:33) Lipase (03/30/19 18:18) Ct Abdomen/Pelvis W (03/30/19 19:22) Iohexol Injection (Omnipaque 350 Mg/Ml 1 (03/30/19 19:30) Received Contrast (Hold Metformin- Contr (03/30/19 19:30) Sodium Chloride Flush (Catheter Flush Sy (03/30/19 19:30) Ns (Ivpb) (Sodium Chloride 0.9% Ivpb Bag (03/30/19 19:30) Ketorolac Injection (Toradol Injection) (03/30/19 20:30) Medications Given in ED Current Medications Medications Dose Ordered Sig/Maria Ines Route Start Time Stop Time Status Last Admin Dose Admin Al Hydrox/Mg Hydrox/Simethicone 30 ml ONCE ONCE PO 03/30/19 18:45 03/30/19 18:46 DC 03/30/19 19:14 30 ML Iohexol 100 ml ONCE ONCE IV 03/30/19 19:30 03/30/19 19:31 DC 03/30/19 19:52 100 ML Ketorolac Tromethamine 30 mg ONCE ONCE IVP 03/30/19 20:30 03/30/19 20:31 DC 03/30/19 20:25 30 MG Lactated Ringer's 1,000 ml @ 0 mls/hr Q0M ONCE IV 03/30/19 18:33 03/30/19 18:37 DC 03/30/19 18:44 0 MLS/HR Lidocaine HCl 15 ml ONCE ONCE PO 03/30/19 18:45 03/30/19 18:46 DC 03/30/19 19:14 15 ML Ondansetron HCl 4 mg ONCE ONCE IVP 03/30/19 18:45 03/30/19 18:46 DC 03/30/19 18:44 4 MG Sodium Chloride 10 ml NEEDED PRN IV 03/30/19 19:30 03/30/19 19:52 10 ML Sodium Chloride 100 ml ONCE ONCE IV 03/30/19 19:30 03/30/19 19:31 DC 03/30/19 19:52 80 ML Vital Signs/I&O 03/30/19 18:10 Temp 36.4 Pulse 70 Resp 18 B/P (MAP) 105/55 (72) Pulse Ox 99 O2 Delivery Room Air Diagnostic Imaging Diagonstic Imaging: CT Plain Films/CT/US/NM/MRI: abdomen, pelvis Comments NAME: CARMELO RAJAN [facility] REC#: [id number] PT STATUS: REG ER : 2000 PHYSICIAN: MILANA NOONAN MD ADMIT DATE: 03/30/19/ER Draft Date of Exam:03/30/19 CT ABDOMEN/PELVIS W CT ABDOMEN/PELVIS W TECHNIQUE: Multiple contiguous axial images were obtained through the abdomen and pelvis after administration of intravenous contrast. All CT scans use one or more of the following dose optimizing techniques: automated exposure control, MA and/or KvP adjustment based on a patient size and exam type, or iterative reconstruction. INDICATION: Vomiting and abdominal pain COMPARISON: CT abdomen and pelvis from 05/11/2017 FINDINGS: Lower chest: The lung bases are clear. No pericardial or pleural effusion. Peritoneum: No free intraperitoneal air or fluid. Liver and biliary system: The liver is normal. The gallbladder is normal. No biliary duct dilation. Spleen and Pancreas: Spleen is normal. The pancreas enhances normally without mass lesion or peripancreatic inflammatory changes. Adrenals: Normal. tract: The kidneys enhance normally without suspicious mass or obstruction. Urinary bladder is distended without wall thickening. No renal or ureteral stones. Prostate is not enlarged. GI tract: Stomach is partially filled with fluid and there is no wall thickening. No bowel obstruction. No pericolonic inflammatory changes. Appendectomy. Vasculature and Lymph nodes: Normal caliber aorta. No abdominal or pelvic lymphadenopathy. Musculoskeletal: No concerning osseous lesion. IMPRESSION: 1. No acute obstructive or inflammatory process in the abdomen and pelvis. 2. No urinary tract calculi. 3. Appendectomy. Dictated on workstation # [id number] Dict: 03/30/191956 Trans: 03/30/192000 KAMILAH [id number] Interpreted by: DEEPTHI OLIVIER MD Electronically signed by: Reviewed: Reviewed by Me Departure Impression Primary Impression: Right upper quadrant abdominal pain Disposition: 01 HOME, SELF-CARE Condition: Stable Departure-Patient Inst. Decision time for Depature: 20:16 Referrals: PEYTON PAIGE MD (PCP/Family) Primary Care Physician Patient Instructions: Acute Abdomen (Belly Pain), Adult (DC) Add. Discharge Instructions: Call tomorrow and set up an ultrasound appointment. Call for an appointment with your primary care doctor for follow-up and results later in the week. Take the omeprazole 20 mg twice a day. Ibuprofen 800 mg every 8 hours. Avoid greasy, spicy foods or dairy. Stick with high fiber diet. Lots of fluids. Return to the ER for intractable pain nausea or vomiting. If you have nausea take one tablet Zofran every 6 hours as necessary under the tongue. All discharge instructions reviewed with patient and/or family. Voiced understanding. Scripts Omeprazole (Omeprazole) 20 Mg Tablet.dr 20 MG PO BID for 7 Days, #14 TAB 0 Refills Prov: MILANA NOONAN 03/30/19 Ondansetron (Ondansetron Odt) 4 Mg Tab.rapdis 4 MG PO Q6H PRN for NAUSEA/VOMITING-1ST LINE, #10 TAB 0 Refills Prov: MILANA NOONAN 03/30/19 MILANA NOONAN Mar 30, 2019 18:41
[2019-03-30] MEDS ORDERED: ONDANSETRON 4 MG/2 ML (SDV) Z0FRAN IVP ONE (18:45)
[2019-03-30] MEDS ORDERED: LIDOCAINE 2% VISCOUS 15 ML UDC PO ONE (18:45)
[2019-03-30] MEDS ORDERED: ANTACID SUSP 30 ML UDC (MYLANTA) PO ONE (18:45)
[2019-03-30 19:00] LABS: ALANINE AMINOTRANSFERASE 101 U/L (0-55); ALBUMIN 4.9 GM/DL (3.2-4.5); ALKALINE PHOSPHATASE 67 U/L (40-136); BILIRUBIN,TOTAL 0.6 MG/DL (0.1-1.0); BUN/CREATININE RATIO 13; CALCIUM 9.7 MG/DL (8.5-10.1); CARBON DIOXIDE 27 MMOL/L (21-32); CHLORIDE 105 MMOL/L (98-107); CREATININE SERUM 0.98 MG/DL (0.60-1.30); GFR ESTIMATED > 60; GLUCOSE 77 MG/DL (70-105); LIPASE 106 U/L (8-78); POTASSIUM 4.1 MMOL/L (3.6-5.0); SODIUM 140 MMOL/L (135-145); TOTAL PROTEIN 7.8 GM/DL (6.4-8.2)
[2019-03-30] MEDS ORDERED: CATHETER FLUSH 10 ML SYR IV PRN (19:30)
[2019-03-30] MEDS ORDERED: HOLD METFORMIN - RECEIVED CONTRAST 20 ML VIAL IV SCH (19:30)
[2019-03-30] MEDS ORDERED: NS 100 ML (IVPB) BAG IV ONE (19:30)
[2019-03-30] MEDS ORDERED: IOHEXOL 350 MG/ML 100 ML (OMNIPAQUE 350) VIAL IV ONE (19:30)
--- NOTE | 2019-03-30 20:02 | Diagnostic Imaging Report ---
CT ABDOMEN/PELVIS W TECHNIQUE: Multiple contiguous axial images were obtained through the abdomen and pelvis after administration of intravenous contrast. All CT scans use one or more of the following dose optimizing techniques: automated exposure control, MA and/or KvP adjustment based on a patient size and exam type, or iterative reconstruction. INDICATION: Vomiting and abdominal pain COMPARISON: CT abdomen and pelvis from 05/11/2017 FINDINGS: Lower chest: The lung bases are clear. No pericardial or pleural effusion. Peritoneum: No free intraperitoneal air or fluid. Liver and biliary system: The liver is normal. The gallbladder is normal. No biliary duct dilation. Spleen and Pancreas: Spleen is normal. The pancreas enhances normally without mass lesion or peripancreatic inflammatory changes. Adrenals: Normal. tract: The kidneys enhance normally without suspicious mass or obstruction. Urinary bladder is distended without wall thickening. No renal or ureteral stones. Prostate is not enlarged. GI tract: Stomach is partially filled with fluid and there is no wall thickening. No bowel obstruction. No pericolonic inflammatory changes. Appendectomy. Vasculature and Lymph nodes: Normal caliber aorta. No abdominal or pelvic lymphadenopathy. Musculoskeletal: No concerning osseous lesion. IMPRESSION: 1. No acute obstructive or inflammatory process in the abdomen and pelvis. 2. No urinary tract calculi. 3. Appendectomy. Dictated by: Dictated on workstation # [id number]
[2019-03-30] MEDS ORDERED: OMEP20TA7 PO (20:19)
[2019-03-30] MEDS ORDERED: ONDA4TAB11 PO (20:19)
[2019-03-30] MEDS ORDERED: KETOROLAC 30 MG/ML VIAL IVP ONE (20:30)
[2019-03-30 21:02] VITALS: BP 115/80
== END 2019-03-30 21:02 | disposition home or self-care (01) ==
LOC: EDUNIT# 18:04 → ER 18:06
DX: R10.11 Right upper quadrant pain (principal); R10.13 Epigastric pain; J45.909 Unspecified asthma, uncomplicated; Z87.19 Personal history of other diseases of the digestive system; Z88.5 Allergy status to narcotic agent; Z90.89 Acquired absence of other organs; Z90.49 Acquired absence of other specified parts of digestive tract
CPT/HCPCS: 36415; 74177; 80053; 83690; 85025; 86141; 96361; 96374; 96375

== ENCOUNTER → 2019-03-31 | Outpatient (CLI) | payer SELFPAY ==
[~2019-03-31] MED LIST changes: +OMEP20TA7 PO; +ONDA4TAB11 PO
--- NOTE | 2019-03-31 18:34 | Diagnostic Imaging Report ---
PROCEDURE: US Gallbladder. TECHNIQUE: Multiple real-time grayscale images were obtained over the right upper quadrant in various projections. INDICATION: Epigastric pain. FINDINGS: The CT abdomen/pelvis exam performed on 03/30/2019 failed to show any sign of an acute abnormality of the abdomen or pelvis. On this exam there is no evidence for cholelithiasis or acute cholecystitis. The common bile duct was obscured by bowel gas however. The common bile duct did not seem to be dilated on the CT exam. The liver and right kidney are unremarkable. The pancreas, the aorta and the inferior vena cava were also obscured by bowel gas. The pancreas, the aorta and the inferior vena cava appeared unremarkable on this CT exam. IMPRESSION: 1. There is no evidence for an acute abnormality in the right upper quadrant. 2. If clinical concern regarding an underlying abnormality of the gallbladder persists and further evaluation is desired, then a nuclear medicine hepatobiliary scan will be recommended. Dictated by: Dictated on workstation # [id number]
== END ==
LOC: RAD 15:16
PROVIDERS: ATTEND Emergency Medicine
DX: R10.11 Right upper quadrant pain (principal)
CPT/HCPCS: 76705

== ENCOUNTER 2019-08-12 08:00 | Emergency (ER) | payer SELFPAY ==
--- NOTE | 2019-08-12 08:30 | NUR ---
PLACED ON NON REBREATHER WITHOUT 02 STARING TO HAVE SPASMS IN HANDS. MOTHER AND AT BEDSIDE.
[2019-08-12] MEDS ORDERED: ONDANSETRON 4 MG (ZOFRAN) ORAL DISSOLVE TAB PO STA (08:35)
[2019-08-12] MEDS ORDERED: LORazepam 0.5 MG (ATIVAN) TABLET PO STA (08:35)
--- NOTE | 2019-08-12 08:38 | NUR ---
CALLED TO ROOM PATIENT HYPERVENTLIATING MORE TALKED WITH PATIENT TO GET HIM TO CALM DOWN.
--- NOTE | 2019-08-12 08:44 | ED Respiratory ---
General Chief Complaint: Cough/Cold/Flu Symptoms Stated Complaint: CHEST PAIN;SOA;COUGHING UP BLOOD Nursing Triage Note: AMB TO ROOM CRYING AND APPEARS TO BE HYPERVENTILATING REPORTS FOR 1 WEEK HAS HAD COUGH AND CONGESTOIN CHEST HURTS WHEN TAKING A DEEP BREATH COUGHING UP BLOOD TODAY Source: patient Exam Limitations: no limitations History of Present Illness Date Seen by Provider: Aug 12, 2019 Time Seen by Provider: 08:16 Initial Comments Patient resents ER by private conveyance with chief complaint the past week she's been having some respiratory illness, cough, shortness of breath. He says his daughter and a RSV and had to spend the week in the hospital about a week ago. No no fever or chills. Cough nonproductive. He did notice today however as he was coughing up some spittle he had some blood in it for the past couple days. No nausea vomiting diarrhea or rash. The history as well as the child is not using any medications for it now. He is not having any wheezing. He is feeling some tingling in his fingertips. Allergies and Home Medications Allergies Coded Allergies: hydrocodone (Verified Allergy, Severe, RASH , 05/30/18) Home Medications Cefdinir 300 Mg Capsule, 300 MG PO twice a day Prescribed by: EDMAR BAR on 05/30/18 1019 Cephalexin 500 Mg Capsule, 500 MG PO TID Prescribed by: WALI MAHARAJ on 02/16/19 1357 Omeprazole 20 Mg Tablet.dr, 20 MG PO BID Prescribed by: MILANA NOONAN on 03/30/192018 Ondansetron 4 Mg Tab.rapdis, 4 MG PO Q6H PRN for NAUSEA/VOMITING-1ST LINE Prescribed by: MILANA NOONAN on 03/30/192018 Sulfamethoxazole/Trimethoprim 1 Each Tablet, 1 EACH PO TID Prescribed by: JENNIFER LOPEZ on 05/31/18 1106 Tramadol HCl 50 Mg Tablet, 50 MG PO Q6H PRN for PAIN-MODERATE Prescribed by: WALI MAHARAJ on 02/16/19 1357 Patient Home Medication List Home Medication List Reviewed: Yes Review of Systems Review of Systems Constitutional: No chills; dizziness; No fever; malaise, weakness EENTM: No ear discharge, No ear pain Respiratory: cough, phlegm, short of breath Cardiovascular: chest pain; No edema, No Hx of Intervention, No palpitations, No syncope, No vascular heart diseas Gastrointestinal: No abdominal pain; nausea; No vomiting Genitourinary: No discharge, No dysuria Musculoskeletal: No back pain, No joint pain Skin: No pruritus, No rash Psychiatric/Neurological: Denies Headache, Denies Numbness Past Dahihha-Zwplyb-Evmybu Hx Patient Social History Alcohol Use: Regular Use Alcohol Beverage of Choice: Beer Recreational Drug Use: Yes Drug of Choice: POT Smoking Status: Never a Smoker 2nd Hand Smoke Exposure: No Recent Foreign Travel: No Contact w/Someone Who Travel: No Recent Infectious Disease Expo: No Recent Hopitalizations: No Immunizations Up To Date Tetanus Booster (TDap): Less than 5yrs PED Vaccines UTD: Yes Date of Influenza Vaccine: Apr 01, 2016 Seasonal Allergies Seasonal Allergies: Yes Past Medical History Surgeries: Yes (DENTAL SURGERY TODDLER. hematoma evacuation 09/29/[address] marcano.) Adenoidectomy, Appendectomy, Tonsillectomy Respiratory: Yes Asthma Cardiac: No Neurological: No Reproductive Disorders: No Sexually Transmitted Disease: No Genitourinary: No Gastrointestinal: No Chronic Constipation Musculoskeletal: No Fractures Endocrine: No HEENT: No Tonsilitis Cancer: No Psychosocial: No Integumentary: No Blood Disorders: No Family Medical History Family history: Diabetes mellitus grandmother paternal aunt aunt uncle paternal No Pertinent Family Hx Physical Exam Vital Signs - First Documented 08/12/19 08:06 Temp 37.0 Pulse 81 Resp 20 B/P (MAP) 147/97 (114) Pulse Ox 100 Capillary Refill : Less Than 3 Seconds Height: 5'11.00" Weight: 240lbs. 0.0oz. 108.676118qr; 32.00 BMI Method:Stated General Appearance: WD/WN, mild distress (anxious) Eyes: Bilateral Eye Normal Inspection, Bilateral Eye PERRL, Bilateral Eye EOMI HEENT: PERRL/EOMI, normal ENT inspection, TMs normal, pharynx normal Neck: non-tender, full range of motion, supple Respiratory: lungs clear, normal breath sounds, no respiratory distress, no accessory muscle use, other (tachypnea) Cardiovascular: normal peripheral pulses, regular rate, rhythm Gastrointestinal: normal bowel sounds, non tender Extremities: normal range of motion, non-tender, normal capillary refill Neurologic/Psychiatric: alert, oriented x 3, other (panicky) Skin: normal color, warm/dry Progress/Results/Core Measures Suspected Sepsis Recent Fever Within 48 Hours: No Infection Criteria Present: None New/Unexplained Altered Menta: No Sepsis Screen: No Definite Risk SIRS Temperature: Pulse: 81 Respiratory Rate: 20 Laboratory Tests 08/12/19 09:00: White Blood Count 6.8 Blood Pressure 147 /97 Mean: 114 Laboratory Tests 08/12/19 09:00: Creatinine 0.92, Platelet Count 156, Total Bilirubin 0.8 Results/Orders Lab Results Laboratory Tests Test 08/12/19 09:00 Range/Units White Blood Count 6.8 4.3-11.0 10^3/uL Red Blood Count 5.66 4.35-5.85 10^6/uL Hemoglobin 16.1 13.3-17.7 G/DL Hematocrit 47 40-54 % Mean Corpuscular Volume 83 80-99 FL Mean Corpuscular Hemoglobin 28 25-34 PG Mean Corpuscular Hemoglobin Concent 34 32-36 G/DL Red Cell Distribution Width 13.1 10.0-14.5 % Platelet Count 156 130-400 10^3/uL Mean Platelet Volume 12.8 H 7.4-10.4 FL Neutrophils (%) (Auto) 57 42-75 % Lymphocytes (%) (Auto) 33 12-44 % Monocytes (%) (Auto) 8 0-12 % Eosinophils (%) (Auto) 1 0-10 % Basophils (%) (Auto) 1 0-10 % Neutrophils # (Auto) 3.9 1.8-7.8 X 10^3 Lymphocytes # (Auto) 2.2 1.0-4.0 X 10^3 Monocytes # (Auto) 0.6 0.0-1.0 X 10^3 Eosinophils # (Auto) 0.1 0.0-0.3 10^3/uL Basophils # (Auto) 0.1 0.0-0.1 10^3/uL Sodium Level 137 135-145 MMOL/L Potassium Level 3.6 3.6-5.0 MMOL/L Chloride Level 107 98-107 MMOL/L Carbon Dioxide Level 18 L 21-32 MMOL/L Anion Gap 12 5-14 MMOL/L Blood Urea Nitrogen 13 7-18 MG/DL Creatinine 0.92 0.60-1.30 MG/DL Estimat Glomerular Filtration Rate > 60 BUN/Creatinine Ratio 14 Glucose Level 100 70-105 MG/DL Calcium Level 10.1 8.5-10.1 MG/DL Corrected Calcium 8.5-10.1 MG/DL Total Bilirubin 0.8 0.1-1.0 MG/DL Aspartate Amino Transf (AST/SGOT) 35 H 5-34 U/L Alanine Aminotransferase (ALT/SGPT) 45 0-55 U/L Alkaline Phosphatase 55 40-136 U/L Troponin I < 0.028 <0.028 NG/ML Total Protein 7.9 6.4-8.2 GM/DL Albumin 5.0 H 3.2-4.5 GM/DL Micro Results Microbiology 08/12/19 Influenza Types A,B Antigen (REYES) - Final, Complete My Orders Orders - MILANA NOONAN Lorazepam Tablet (Ativan Tablet) (08/12/19 08:35) Ondansetron Oral Dissolve Tab (Zofran (08/12/19 08:35) Chest 1 View, Ap/Pa Only (08/12/19 08:44) Influenza A And B Antigens (08/12/19 08:44) Cbc With Automated Diff (08/12/19 08:47) Comprehensive Metabolic Panel (08/12/19 08:47) Troponin I (08/12/19 08:47) Continuous Ekg Monitoring (08/12/19 08:47) Ekg Tracing (08/12/19 08:47) Ketorolac Injection (Toradol Injection) (08/12/19 09:00) Medications Given in ED Current Medications Medications Dose Ordered Sig/Maria Ines Route Start Time Stop Time Status Last Admin Dose Admin Ketorolac Tromethamine 60 mg ONCE ONCE IM 08/12/19 09:00 08/12/19 09:01 DC 08/12/19 08:52 60 MG Vital Signs/I&O 08/12/19 08:06 Temp 37.0 Pulse 81 Resp 20 B/P (MAP) 147/97 (114) Pulse Ox 100 Capillary Refill : Less Than 3 Seconds Blood Pressure Mean: 114 Progress Note : Time: 10:01 Progress Note patient presents in a panic attack. One sounds are clear. Plan to get a chest x- ray, influenza swab and some basic labs including a troponin and EKG to look for pericarditis etc. ECG Initial ECG Impression Date: Aug 12, 2019 Initial ECG Impression Time: 09:16 Initial ECG Rate: 62 Initial ECG Rhythm: Normal Sinus Initial ECG Intervals: Normal Initial ECG Impression: Normal Comment Normal sinus rhythm without ST depression or elevation. Artifact seen in leads V4. Diagnostic Imaging Diagonstic Imaging: Xray Plain Films/CT/US/NM/MRI: chest (1v) Comments [facility] [place] NAME: CARMELO RAJAN [facility] REC#: [id number] PT STATUS: REG ER : 2000 PHYSICIAN: MILANA NOONAN MD ADMIT DATE: 08/12/19/ER Draft Date of Exam:08/12/19 CHEST 1 VIEW, AP/PA ONLY CLINICAL INDICATION: Patient with chest pain, toes, tingling shortness of air and cough. EXAM: Portable chest x-ray upright view. COMPARISONS: Chest x-ray dated 07/29/2018. FINDINGS: Lungs/pleura: Lungs are clear. There is no pneumothorax. There is no pleural effusion. Mediastinum: Unremarkable. Pulmonary vasculature: Unremarkable. Heart: Unremarkable. Bones/extrathoracic soft tissue: Unremarkable. IMPRESSION: There is no radiographic evidence of acute cardiopulmonary process. Dictated on workstation # [id number] Dict: 08/12/19918 Trans: 08/12/19921 [facility] [id number] Interpreted by: JULIANN ADAMS MD Electronically signed by: Reviewed: Reviewed by Me Departure Impression Primary Impression: Panic attack Additional Impressions: Costochondritis, acute Bronchitis Disposition: 01 HOME, SELF-CARE Condition: Stable Departure-Patient Inst. Decision time for Depature: 10:22 Referrals: PEYTON PAIGE MD (PCP/Family) Primary Care Physician Patient Instructions: Acute Bronchitis, Adult (DC), Costochondritis Add. Discharge Instructions: Drink lots of fluids. Use Tylenol 1000 mg every 8 hours as needed for pain or fever. Ibuprofen 800 mg every 8 hours as needed for pain. Use a humidifier and vapor rubs when resting. Mucinex may help decrease the thickness of your mucus so you can cough it up easier. Return to your doctor if you're having difficulty breathing, severe fever especially above 102.5, symptoms worsen after 2 weeks. All discharge instructions reviewed with patient and/or family. Voiced understanding. Work/School Note: Work Release Form Date Seen in the Emergency Department: Aug 12, 2019 Return to Work: Aug 14, 2019 Restrictions: No Restrictions MILANA NOONAN Aug 12, 2019 08:44
--- NOTE | 2019-08-12 08:57 | NUR ---
LAB HERE TO DRAW BLOOD
[2019-08-12] MEDS ORDERED: KETOROLAC 60 MG/2 ML VIAL IM ONE (09:00)
[2019-08-12 09:06] LABS: BASOPHILS # (AUTO) 0.1 10^3/uL (0.0-0.1); BASOPHILS % (AUTO) 1 % (0-10); EOSINOPHILS # (AUTO) 0.1 10^3/uL (0.0-0.3); EOSINOPHILS % (AUTO) 1 % (0-10); HEMATOCRIT 47 % (40-54); HEMOGLOBIN 16.1 G/DL (13.3-17.7); LYMPHOCYTES # (AUTO) 2.2 X 10^3 (1.0-4.0); LYMPHOCYTES % (AUTO) 33 % (12-44); MEAN CORPUSCULAR HEMOGLOBIN 28 PG (25-34); MEAN CORPUSCULAR HGB CONC 34 G/DL (32-36); MEAN CORPUSCULAR VOLUME 83 FL (80-99); MEAN PLATELET VOLUME 12.8 FL (7.4-10.4); MONOCYTES # (AUTO) 0.6 X 10^3 (0.0-1.0); MONOCYTES % (AUTO) 8 % (0-12); NEUTROPHILS # (AUTO) 3.9 X 10^3 (1.8-7.8); NEUTROPHILS % (AUTO) 57 % (42-75); PLATELET COUNT 156 10^3/uL (130-400); RED CELL DISTRIBUTION WIDTH 13.1 % (10.0-14.5); WHITE BLOOD COUNT 6.8 10^3/uL (4.3-11.0)
--- NOTE | 2019-08-12 09:09 | NUR ---
TO ROOM PATIENT FEELING BETTER. FAMILY REMAINS AT BEDSIDE.
--- NOTE | 2019-08-12 09:22 | Diagnostic Imaging Report ---
CLINICAL INDICATION: Patient with chest pain, toes, tingling shortness of air and cough. EXAM: Portable chest x-ray upright view. COMPARISONS: Chest x-ray dated 07/29/2018. FINDINGS: Lungs/pleura: Lungs are clear. There is no pneumothorax. There is no pleural effusion. Mediastinum: Unremarkable. Pulmonary vasculature: Unremarkable. Heart: Unremarkable. Bones/extrathoracic soft tissue: Unremarkable. IMPRESSION: There is no radiographic evidence of acute cardiopulmonary process. Dictated by: Dictated on workstation # [id number]
[2019-08-12 09:24] LABS: ALANINE AMINOTRANSFERASE 45 U/L (0-55); ALKALINE PHOSPHATASE 55 U/L (40-136); BILIRUBIN,TOTAL 0.8 MG/DL (0.1-1.0); BUN/CREATININE RATIO 14; CALCIUM 10.1 MG/DL (8.5-10.1); CARBON DIOXIDE 18 MMOL/L (21-32); CHLORIDE 107 MMOL/L (98-107); CREATININE SERUM 0.92 MG/DL (0.60-1.30); GFR ESTIMATED > 60; GLUCOSE 100 MG/DL (70-105); POTASSIUM 3.6 MMOL/L (3.6-5.0); SODIUM 137 MMOL/L (135-145); TOTAL PROTEIN 7.9 GM/DL (6.4-8.2)
--- NOTE | 2019-08-12 09:37 | NUR ---
TO ROOM PATIENT CALM REPORTS STILL HAS SOME PAIN.
--- NOTE | 2019-08-12 09:54 | NUR ---
TO ROOM CALM REPORTS STILL HAVING PAIN IN CHEST WHEN HE TAKES A DEEP BREATH.
[2019-08-12 10:30] VITALS: BP 126/92
[2019-08-12] MEDS ORDERED: ACETAMINOPHEN 500 MG TAB (TYLENOL) PO ONE (10:30)
[2019-08-12] MEDS ORDERED: HYDR25CA PO (10:56)
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
--- OUTSIDE RECORDS SUMMARY | 2019-08-21 07:47 | XMS REPORT ---
Author Author Enoc CHOW Organization [facility] [place] Address [address] [place] [address] Care Team Providers Care Supply Requirements Officer Name Role Phone JULY CHOW Unavailable PROBLEMS No Known Problems ALLERGIES No Information ENCOUNTERS Encounter Location Date Diagnosis [facility] [address] [address] May, Acute sore throat J02.9 ; No n-recurrent acute suppurative otitis media of right ear without spontaneous rupture of tympanic membrane H66.001 and Viral upper respiratory infection J06.9 [facility] [id number] [place], [place] [id number] Jan, Dental examination Z01.20 [facility] [place] [id number] [place] [address] Jan, Gastroenteritis K52.9 and Foreign body ( FB) in soft tissue M79.5 [facility] WALK IN [facility] [address] [place] [address] Dec, [facility] IN [facility] [address] [place] [address] Apr, [facility] [place] [address] [address] Apr, Tinea cruris B35.6 [facility] [address] [place] [address] Mar, Stomach cramps, generalized R10.84 [facility] [address] [place] [address] October, Ear pain, left H92.02 [facility] [address] [place] [address] [address] Sep, Sore throat J02.9 [facility] [address] [facility] [id number] [place] [address] Jun, Acute upper respiratory infe ction, unspecified J06.9 ; Other viral agents as the cause of diseases classified elsewhere B97.89 and Sore throat J02.9 [facility] [place] [address] [address] Dec, Pain of right lower leg 729.5 [facility] [place] [address] [address] Dec, Pain of right lower leg 729.5 [facility] [place] [address] [address] Dec, Right leg pain 729.5 [facility] [place] [address] [address] Dec, Exertional compartment syndrome of right lower extremity 958.92 and Pain of right lower leg 729.5 [facility] [place] [address] [address] Sep, [facility] [place] [address] [address] Sep, [facility] [place] [address] [address] Jun, [facility] [place] [address] [address] Jun, [facility] [place] [address] [address] May, [facility] [place] [address] [address] May, [facility] [place] [address] [address] Dec, [facility] [place] [address] [address] Dec, [facility] [place] [facility] [address] [id number] [place] [address] Dec, [facility] [place] [facility] [address] [id number] [place] [address] Dec, [facility] [place] [facility] [address] [id number] [place] [address] Nov, [facility] [place] [facility] [address] [id number] [place] [address] Nov, [facility] [place] [facility] [address] [id number] [place] [address] Nov, [facility] [place] [facility] [address] [id number] [place] [address] Nov, [facility] [place] [facility] [address] [id number] [place] [address] Aug, [facility] [place] [facility] [address] [id number] [place] [address] Aug, [facility] [place] [facility] [address] [id number] [place] [address] May, [facility] [place] [facility] [address] [id number] [place] [address] May, [facility] [place] [facility] [address] [id number] [place] [address] Jan, [facility] [place] [facility] [address] [id number] [place] [address] October, [facility] [place] [facility] [address] [id number] [place] [address] Sep, [facility] [place] [facility] [address] [id number] [place] [address] Aug, [facility] [place] [facility] [address] [id number] [place] [address] Jul, [facility] [place] [facility] [address] [id number] [place] [address] Jul, [facility] [place] [facility] [address] [id number] [place] [address] Jul, [facility] [place] [address] [id number] [place] [address] October, [facility] [place] [address] [id number] [place] [address] Sep, [facility] [place] [address] [id number] [place] [address] Aug, [facility] [place] [id number] [place] [address] 14 Mar, 2010 [facility] [place] [id number] [place] [address] Jan, [facility] [place] [id number] [place] [address] Jul, [facility] [place] [id number] [place] [address] 15 Mar, 2009 [facility] [place] [id number] [place] [address] October, [facility] [place] [address] [id number] [place] [address] 15 Jun, 2008 [facility] [place] [id number] [place] [address] Jun, [facility] [place] [address] [id number] [place] [address] Aug, [facility] [place] [id number] [place] [address] May, [facility] [place] [address] [id number] [place] [address] May, IMMUNIZATIONS No Known Immunizations SOCIAL HISTORY Never Assessed REASON FOR VISIT PLAN OF CARE VITAL SIGNS Height 67.3 in 2014-01-01 Weight 253.31 lbs 2014-01-01 Temperature 97.3 degrees Fahrenheit 2014-01-01 Heart Rate 107 bpm 2014-01-01 Respiratory Rate 20 2014-01-01 Blood pressure systolic 135 mmHg 2014-01-01 Blood pressure diastolic 68 mmHg 2014-01-01 MEDICATIONS Unknown Medications RESULTS No Results PROCEDURES [...]
--- OUTSIDE RECORDS SUMMARY | 2019-08-21 07:47 | XMS REPORT ---
Author Author Enoc Devine Organization [facility] [place] [facility] Address [address] [place] [address] Care Team Providers Care Video Editing Internship Name Role Phone DOMENICA Devine Unavailable PROBLEMS No Known Problems ALLERGIES No Information ENCOUNTERS Encounter Location Date Diagnosis [facility] [address] [place] [address] Dec, [facility] [address] [address] Apr, [address] [address] Apr, Tinea cruris B35.[address] [facility] W[facility] IN [facility] [address] [place] [address] Mar, Stomach cramps, generalized R10.84 [facility] IN [address] [address] October, Ear pain, left H92.02 [facility] [address] [address] Sep, Sore throat J02.[address] [facility] [address] [place] [address] Jun, Acute upper respiratory infe ction, unspecified J06.9 ; Other viral agents as the cause of diseases classified elsewhere B97.89 and Sore throat J02.[address] [address] 07 Dec, 2014 Pain of right lower leg 729. [address] [place] [address] 07 Dec, 2014 Pain of right lower leg 729. 5 [facility] [address] [id number] [address] [place] [address] 07 Dec, 2014 Right leg pain 729.5 [facility] [address] [id number] [address] [place] [address] 06 Dec, 2014 Exertional compartment syndr ome of right lower extremity 958.92 and Pain of right lower leg 729.5 [facility] [address] [id number] [address] [place] [address] 14 Sep, 2014 [facility] [address] [id number] [address] [place] [address] Sep, [facility] [address] [id number] [address] [place] [address] Jun, [facility] [address] [id number] [address] [place] [address] Jun, [facility] [address] [id number] [address] [place] [address] May, [facility] [address] [id number] [address] [place] [address] May, [facility] [address] [id number] [address] [place] [address] Dec, [facility] [address] [id number] [address] [place] [address] Dec, [facility] [address] [id number] [address] [place] [address] Dec, [facility] [address] [id number] [address] [place] [address] Dec, [facility] [address] [id number] [address] [place] [address] Nov, [facility] [address] [id number] [address] [place] [address] Nov, [facility] [place] [address] [id number] [address] [place] [address], [place] [address] Nov, [facility] [address] [id number] [address] [place] [address], [place] [address] Nov, [facility] [address] [id number] [address] [place] [address], [place] [address] Aug, [facility] [address] [id number] [address] [place] [address], [place] [address] Aug, [facility] [address] [id number] [address] [place] [address], [place] [address] May, [facility] [address] [id number] [address] [place] [address], [place] [address] May, [facility] [address] [id number] [address] [place] [address], [place] [address] Jan, [facility] [address] [id number] [address] [place] [address], [place] [address] October, [facility] [place] [address] [id number] [address] [place] [address], [place] [address] Sep, [facility] [address] [id number] [address] [place] [address], [place] [address] Aug, [facility] [place] [address] [id number] [address] [place] [address], [place] [address] Jul, [facility] [address] [id number] [address] [place] [address], [place] [address] Jul, [facility] [address] [id number] [address] [place] [address], [place] [address] Jul, [facility] [address] [id number] [address] [place] [address], [place] [address] October, [facility] [address] [id number] [address] [place] [address], [place] [address] Sep, [facility] [address] [id number] [address] [place] [address] 21 Aug, 2011 [facility] [address] [id number] [address] [place] [address] 14 Mar, 2010 [facility] [address] [id number] [address] [place] [address] Jan, [facility] [address] [id number] [address] [place] [address] Jul, [facility] [address] [id number] [address] [place] [address] 15 Mar, 2009 [facility] [address] [id number] [address] [place] [address] October, [facility] [address] [id number] [address] [place] [address] 15 Jun, 2008 [facility] [address] [id number] [address] [place] [address] 15 Jun, 2008 [facility] [address] [id number] [address] [place] [address] Aug, [facility] [address] [id number] [address] [place] [address] 15 May, 2007 [facility] [address] [id number] [address] [place] [address] 11 May, 2004 IMMUNIZATIONS No Known Immunizations SOCIAL HISTORY Never Assessed REASON FOR VISIT PLAN OF CARE VITAL SIGNS MEDICATIONS Unknown Medications RESULTS No Results PROCEDURES Procedure Date Ordered Result Body Site RESPIRATORY FLOW VOLUME LOOP Jun 03, 2014 SPRIOMETRY CHALLENGE Jun 03, 2014 SPIROMETRY Jun 03, 2014 INSTRUCTIONS MEDICATIONS ADMINISTERED No Known Medications MEDICAL [...]
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
--- OUTSIDE RECORDS SUMMARY | 2019-08-21 07:47 | XMS REPORT ---
Author Author Enoc Kaiser Doctor Organization [facility] Address Unknown Phone Unavailable Care Team Providers Care Launch Leader Name Role Phone Migration, Doctor Unavailable Unavailable PROBLEMS No Known Problems ALLERGIES No Information ENCOUNTERS Encounter Location Date Diagnosis [facility] [address] [address] Apr, [facility] [address] [address] Apr, Tinea cruris B35.6 [facility] [address] [address] Mar, Stomach cramps, generalized R10.84 [facility] [address] [address] October, Ear pain, left H92.02 [facility] [address] [address] Sep, Sore throat J02.9 [facility] [address] [address] Jun, Acute upper respiratory infe ction, unspecified J06.9 ; Other viral agents as the cause of diseases classified elsewhere B97.89 and Sore throat J02.9 [facility] [address] [id number] [address] [place] [phone] Dec, Pain of right lower leg 729. 5 [place] [address] [address] Dec, Pain of right lower leg 729. 5 [facility] [address] [address] Dec, Right leg pain 729.5 [facility] [address] [id number] [address] [place] [phone] Dec, Exertional compartment syndr ome of right lower extremity 958.92 and Pain of right lower leg 729.5 [facility] [address] [id number] [address] [place] [address], [place] [address] 14 Sep, 2014 [facility] [address] [id number] [address] [place] [phone] Sep, [facility] [address] [id number] [address] [place] [phone] Jun, [facility] [address] [id number] [address] [place] [phone] Jun, [facility] [address] [id number] [address] [place] [phone] May, [facility] [address] [id number] [address] [place] [phone] May, [facility] [address] [id number] [address] [place] [phone] Dec, [facility] [address] [id number] [address] [place] [phone] Dec, [facility] [address] [id number] [address] [place] [phone] Dec, [facility] [address] [id number] [address] [place] [phone] Dec, [facility] [address] [id number] [address] [place] [phone] Nov, [facility] [address] [id number] [address] [place] [phone] Nov, [facility] [address] [id number] [address] [place] [phone] Nov, [facility] [address] [id number] [address] [place] [phone] Nov, [facility] [address] [id number] [address] [place] [address], [place] [address] Aug, [facility] [address] [id number] [address] [place] [address], [place] [address] Aug, [facility] [address] [id number] [address] [place] [address], [place] [address] May, [facility] [address] [id number] [address] [place] [address], [place] [address] May, [facility] [address] [id number] [address] [place] [address], [place] [address] Jan, [facility] [address] [id number] [address] [place] [address], [place] [address] October, [facility] [address] [id number] [address] [place] [address], [place] [address] Sep, [facility] [address] [id number] [address] [place] [address], [place] [address] Aug, [facility] [address] [id number] [address] [place] [address], [place] [address] Jul, [facility] [address] [id number] [address] [place] [address], [place] [address] Jul, [facility] [address] [id number] [address] [place] [address], [place] [address] Jul, [facility] [address] [id number] [address] [place] [address], [place] [address] October, [facility] [address] [id number] [address] [place] [address], [place] [address] Sep, [facility] [address] [id number] [address] [place] [address], [place] [address] Aug, [facility] [address] [id number] [address] [place] [address], [place] [address] 14 Mar, 2010 [facility] [address] [id number] [address] [place] [phone] Jan, [facility] [address] [facility] [id number] [address] [place] [phone] Jul, [facility] [address] [facility] [id number] [address] [place] [phone] 15 Mar, 2009 [facility] [address] [facility] [id number] [address] [place] [phone] October, [facility] [address] [facility] [id number] [address] [place] [id number] Jun, [facility] [address] [facility] [id number] [address] [place] [phone] Jun, [facility] [address] [facility] [id number] [address] [place] [phone] Aug, [facility] [address] [facility] [id number] [address] [place] [phone] 15 May, 2007 [facility] [address] [facility] [id number] [address] [place] [phone] May, IMMUNIZATIONS No Known Immunizations SOCIAL HISTORY Never Assessed REASON FOR VISIT [facility] [place] VITAL SIGNS MEDICATIONS Unknown [...]
--- OUTSIDE RECORDS SUMMARY | 2019-08-21 07:47 | XMS REPORT ---
Author Author Enoc EDDY Organization [facility] Address [address] [place] [address] Care Team Providers Care Chief Of Harbor Patrol Name Role Phone ALISA EDDY Unavailable PROBLEMS No Known Problems ALLERGIES No Information ENCOUNTERS Encounter Location Date Diagnosis [facility] [id number] [place] [id number] Jan, Dental examination Z01.20 [facility] [address] [address] Jan, Gastroenteritis K52.9 and Fo reign body (FB) in soft tissue M79.5 [facility] [address] [place] [phone] Dec, [facility] [address] [place] [phone] Apr, [facility] [address] [address] Apr, Tinea cruris B35.6 [facility] [address] [place] [address] Mar, Stomach cramps, generalized R10.84 [facility] [address] [place] [phone] October, Ear pain, left H92.02 [facility] [address] [place] [address] Sep, Sore throat J02.9 [facility] [address] [place] [address] Jun, Acute upper respiratory infe ction, unspecified J06.9 ; Other viral agents as the cause of diseases classified elsewhere B97.89 and Sore throat J02.9 [facility] [address] [id number] [address] [place] [phone] Dec, Pain of right lower leg 729. 5 [facility] [address] [id number] [address] [place] [id number] Dec, Pain of right lower leg 729. 5 [facility] [address] [id number] [address] [place] [phone] Dec, Right leg pain 729.5 [facility] [address] [id number] [address] [place] [phone] Dec, Exertional compartment syndr ome of right lower extremity 958.92 and Pain of right lower leg 729.5 [facility] [address] [id number] [address] [place] [phone] Sep, [facility] [address] [id number] [address] [place] [phone] Sep, [facility] [address] [id number] [address] [place] [phone] Jun, [facility] [address] [id number] [address] [place] [phone] Jun, [facility] [address] [id number] [address] [place] [phone] May, [facility] [address] [id number] [address] [place] [phone] May, [facility] [address] [id number] [address] [place] [phone] Dec, [facility] [address] [id number] [address] [place] [phone] Dec, [facility] [address] [id number] [address] [place] [phone] Dec, [facility] [address] [id number] [address] [place] [address], [place] [address] Dec, [facility] [address] [id number] [address] [place] [address], [place] [address] Nov, [facility] [address] [id number] [address] [place] [address], [place] [address] Nov, [facility] [address] [id number] [address] [place] [address], [place] [address] Nov, [facility] [address] [id number] [address] [place] [address], [place] [address] Nov, [facility] [address] [id number] [address] [place] [address], [place] [address] Aug, [facility] [address] [id number] [address] [place] [address], [place] [address] Aug, [facility] [address] [id number] [address] [place] [address], [place] [address] May, [facility] [address] [id number] [address] [place] [address], [place] [address] May, [facility] [address] [id number] [address] [place] [address], [place] [address] Jan, [facility] [address] [id number] [address] [place] [address], [place] [address] October, [facility] [address] [id number] [address] [place] [address], [place] [address] Sep, [facility] [address] [id number] [address] [place] [address], [place] [address] Aug, [facility] [address] [id number] [address] [place] [address], [place] [address] Jul, [facility] [address] [id number] [address] [place] [address], [place] [address] Jul, [facility] [address] [id number] [address] [place] [address], [place] [address] Jul, [facility] [address] [id number] [address] [place] [phone] October, [facility] [address] [id number] [address] [place] [phone] Sep, [facility] [address] [id number] [address] [place] [phone] Aug, [facility] [address] [id number] [address] [place] [id number] 14 Mar, 2010 [facility] [address] [id number] [address] [place] [phone] Jan, [facility] [address] [id number] [address] [place] [phone] Jul, [facility] [address] [id number] [address] [place] [phone] 15 Mar, 2009 [facility] [address] [id number] [address] [place] [phone] October, [facility] [address] [id number] [address] [place] [phone] Jun, [facility] [address] [id number] [address] [place] [phone] Jun, [facility] [address] [id number] [address] [place] [phone] Aug, [facility] [address] [id number] [address] [place] [phone] May, [facility] [address] [id number] [address] [place] [phone] May, IMMUNIZATIONS No Known Immunizations SOCIAL HISTORY [...]
--- OUTSIDE RECORDS SUMMARY | 2019-08-21 07:47 | XMS REPORT ---
Author Author Enoc Kaiser Doctor Organization [facility] Address Unknown Phone Unavailable Care Team Providers Care Painting Contractor Name Role Phone Migration, Doctor Unavailable Unavailable PROBLEMS No Known Problems ALLERGIES No Information ENCOUNTERS Encounter Location Date Diagnosis [facility] [address] [address] Apr, [facility] [address] [address] Apr, Tinea cruris B35.6 [facility] [address] [address] Mar, Stomach cramps, generalized R10.84 [facility] [address] [address] October, Ear pain, left H92.02 [facility] [address] [address] Sep, Sore throat J02.9 [facility] [address] [address] Jun, Acute upper respiratory infe ction, unspecified J06.9 ; Other viral agents as the cause of diseases classified elsewhere B97.89 and Sore throat J02.9 [facility] [address] [place] [id number] [address] [place] [address] Dec, Pain of right lower leg 729. 5 [place] [address] [address] Dec, Pain of right lower leg 729. 5 [facility] [address] [address] Dec, Right leg pain 729.5 [facility] [address] [id number] [address] [place] [address] Dec, Exertional compartment syndr ome of right lower extremity 958.92 and Pain of right lower leg 729.5 [facility] [address] [id number] [address] [place] [address], [place] [address] 14 Sep, 2014 [facility] [address] [id number] [address] [place] [address] Sep, [facility] [address] [id number] [address] [place] [address] Jun, [facility] [address] [id number] [address] [place] [address] Jun, [facility] [address] [id number] [address] [place] [address] May, [facility] [address] [id number] [address] [place] [address] May, [facility] [address] [id number] [address] [place] [address] Dec, [facility] [address] [id number] [address] [place] [address] Dec, [facility] [address] [id number] [address] [place] [address] Dec, [facility] [address] [id number] [address] [place] [address] Dec, [facility] [address] [id number] [address] [place] [address] Nov, [facility] [address] [id number] [address] [place] [address] Nov, [facility] [address] [id number] [address] [place] [address] Nov, [facility] [address] [id number] [address] [place] [address] Nov, [facility] [address] [id number] [address] [place] [address], [place] [address] Aug, [facility] [address] [id number] [address] [place] [address], [place] [address] Aug, [facility] [address] [id number] [address] [place] [address], [place] [address] May, [facility] [address] [id number] [address] [place] [address], [place] [address] May, [facility] [address] [id number] [address] [place] [address], [place] [address] Jan, [facility] [address] [id number] [address] [place] [address], [place] [address] October, [facility] [address] [id number] [address] [place] [address], [place] [address] Sep, [facility] [address] [id number] [address] [place] [address], [place] [address] Aug, [facility] [address] [id number] [address] [place] [address], [place] [address] Jul, [facility] [address] [id number] [address] [place] [address], [place] [address] Jul, [facility] [address] [id number] [address] [place] [address], [place] [address] Jul, [facility] [address] [id number] [address] [place] [address], [place] [address] October, [facility] [address] [id number] [address] [place] [address], [place] [address] Sep, [facility] [address] [id number] [address] [place] [address], [place] [address] Aug, [facility] [address] [id number] [address] [place] [address], [place] [address] 14 Mar, 2010 [facility] [address] [id number] [address] [place] [address] Jan, [facility] [address] [facility] [id number] [address] [place] [address] Jul, [facility] [address] [facility] [id number] [address] [place] [address] 15 Mar, 2009 [facility] [address] [facility] [id number] [address] [place] [address] October, [facility] [address] [facility] [id number] [address] [place] [address] Jun, [facility] [address] [facility] [id number] [address] [place] [address] Jun, [facility] [address] [facility] [id number] [address] [place] [address] Aug, [facility] [address] [facility] [id number] [address] [place] [address] 15 May, 2007 [facility] [address] [facility] [id number] [address] [place] [address] May, IMMUNIZATIONS No Known Immunizations SOCIAL HISTORY Never Assessed REASON FOR VISIT [facility] PLAN OF CARE VITAL SIGNS MEDICATIONS Unknown [...]
--- OUTSIDE RECORDS SUMMARY | 2019-08-21 07:47 | XMS REPORT ---
Author Author Enoc Kaiser Doctor Organization [facility] Address Unknown Phone Unavailable Care Team Providers Care Transmission Calibration Engineer Name Role Phone Migration, Doctor Unavailable Unavailable PROBLEMS No Known Problems ALLERGIES No Information ENCOUNTERS Encounter Location Date Diagnosis [facility] [address] [address] Apr, [facility] [address] [address] Apr, Tinea cruris B35.6 [facility] [address] [address] Mar, Stomach cramps, generalized R10.84 [facility] [address] [address] October, Ear pain, left H92.02 [facility] [address] [address] Sep, Sore throat J02.9 [facility] [address] [address] Jun, Acute upper respiratory infe ction, unspecified J06.9 ; Other viral agents as the cause of diseases classified elsewhere B97.89 and Sore throat J02.9 [facility] [address] [place] [id number] [address] [place] [address] Dec, Pain of right lower leg 729. 5 [place] [address] [address] Dec, Pain of right lower leg 729. 5 [facility] [address] [address] Dec, Right leg pain 729.5 [facility] [address] [id number] [address] [place] [address] Dec, Exertional compartment syndr ome of right lower extremity 958.92 and Pain of right lower leg 729.5 [facility] [address] [id number] [address] [place] [address], [place] [address] 14 Sep, 2014 [facility] [address] [id number] [address] [place] [address] Sep, [facility] [address] [id number] [address] [place] [address] Jun, [facility] [address] [id number] [address] [place] [address] Jun, [facility] [address] [id number] [address] [place] [address] May, [facility] [address] [id number] [address] [place] [address] May, [facility] [address] [id number] [address] [place] [address] Dec, [facility] [address] [id number] [address] [place] [address] Dec, [facility] [address] [id number] [address] [place] [address] Dec, [facility] [address] [id number] [address] [place] [address] Dec, [facility] [address] [id number] [address] [place] [address] Nov, [facility] [address] [id number] [address] [place] [address] Nov, [facility] [address] [id number] [address] [place] [address] Nov, [facility] [address] [id number] [address] [place] [address] Nov, [facility] [address] [id number] [address] [place] [address], [place] [address] Aug, [facility] [address] [id number] [address] [place] [address], [place] [address] Aug, [facility] [address] [id number] [address] [place] [address], [place] [address] May, [facility] [address] [id number] [address] [place] [address], [place] [address] May, [facility] [address] [id number] [address] [place] [address], [place] [address] Jan, [facility] [address] [id number] [address] [place] [address], [place] [address] October, [facility] [address] [id number] [address] [place] [address], [place] [address] Sep, [facility] [address] [id number] [address] [place] [address], [place] [address] Aug, [facility] [address] [id number] [address] [place] [address], [place] [address] Jul, [facility] [address] [id number] [address] [place] [address], [place] [address] Jul, [facility] [address] [id number] [address] [place] [address], [place] [address] Jul, [facility] [address] [id number] [address] [place] [address], [place] [address] October, [facility] [address] [id number] [address] [place] [address], [place] [address] Sep, [facility] [address] [id number] [address] [place] [address], [place] [address] Aug, [facility] [address] [id number] [address] [place] [address], [place] [address] 14 Mar, 2010 [facility] [address] [id number] [address] [place] [address] Jan, [facility] [address] [id number] [address] [place] [address] Jul, [facility] [address] [id number] [address] [place] [address] 15 Mar, 2009 [facility] [address] [id number] [address] [place] [address] October, [facility] [address] [id number] [address] [place] [address] 15 Jun, 2008 [facility] [address] [id number] [address] [place] [address] Jun, [facility] [address] [id number] [address] [place] [address] Aug, [facility] [address] [id number] [address] [place] [address] 15 May, 2007 [facility] [address] [id number] [address] [place] [address] May, IMMUNIZATIONS No Known Immunizations SOCIAL HISTORY Never Assessed REASON FOR VISIT [facility] PLAN OF CARE VITAL SIGNS MEDICATIONS Medication Instructions Dosage Frequency Start Date End Date Duration S tatus ProAir HFA 90 mcg/actuation inhale 2-4 p uffs by Inhalation route every 4 hours as needed PRN shortness of breath/cough May, Active Bactrim DS 800-160 mg take 1 tablet by O ral route 2 times per day for 2 weeks for prostatitis Aug, Active RESULTS No Results PROCEDURES No Known [...]
--- OUTSIDE RECORDS SUMMARY | 2019-08-21 07:47 | XMS REPORT ---
Author Author Enoc EDDY Organization [facility] Address [address] [place] [address] Care Team Providers Care Cement Gun Operator Name Role Phone ALISA EDDY Unavailable PROBLEMS No Known Problems ALLERGIES No Information ENCOUNTERS Encounter Location Date Diagnosis [facility] [address] [address] May, Acute sore throat J02.9 ; No n-recurrent acute suppurative otitis media of right ear without spontaneous rupture of tympanic membrane H66.001 and Viral upper respiratory infection J06.9 [facility] [id number] [place] [id number] Jan, Dental examination Z01.20 [facility] [address] [id number] [place] [address] Jan, Gastroenteritis K52.9 and Foreign body ( FB) in soft tissue M79.5 [facility] [address] [address] Dec, [facility] [address] [address] Apr, [facility] [address] [address] Apr, Tinea cruris B35.6 [facility] [address] [address] Mar, Stomach cramps, generalized R10.84 [facility] [address] [address] October, Ear pain, left H92.02 [facility] [address] [address] Sep, Sore throat J02.9 [facility] [address] [facility] [id number] [place] [address] Jun, Acute upper respiratory infe ction, unspecified J06.9 ; Other viral agents as the cause of diseases classified elsewhere B97.89 and Sore throat J02.9 [facility] [address] [address] Dec, Pain of right lower leg 729.5 [facility] [address] [address] Dec, Pain of right lower leg 729.5 [facility] [address] [address] Dec, Right leg pain 729.5 [facility] [address] [address] Dec, Exertional compartment syndrome of right lower extremity 958.92 and Pain of right lower leg 729.5 [facility] [address] [address] Sep, [facility] [address] [address] Sep, [facility] [address] [address] Jun, [facility] [address] [address] Jun, [facility] [address] [address] May, [facility] [address] [address] May, [facility] [address] [address] Dec, [facility] [address] [address] Dec, [facility] [address] [id number] [place] [address] Dec, [facility] [address] [id number] [place] [address] Dec, [facility] [address] [id number] [place] [address] Nov, [facility] [address] [id number] [place] [address] Nov, [facility] [address] [id number] [place] [address] Nov, [facility] [address] [id number] [place] [address] Nov, [facility] [address] [id number] [place] [address] Aug, [facility] [address] [id number] [place] [address] Aug, [facility] [address] [id number] [place] [address] May, [facility] [address] [id number] [place] [address] May, [facility] [address] [id number] [place] [address] Jan, [facility] [address] [id number] [place] [address] October, [facility] [address] [id number] [place] [address] Sep, [facility] [address] [id number] [place] [address] Aug, [facility] [address] [id number] [place] [address] Jul, [facility] [address] [id number] [place] [address] Jul, [facility] [address] [id number] [place] [address] Jul, [facility] [id number] [place] [address] October, [facility] [id number] [place] [address] Sep, [facility] [id number] [place] [address] Aug, [facility] [id number] [place] [address] 14 Mar, 2010 [facility] [address] [address] Jan, [facility] [address] [address] Jul, [facility] [address] [address] 15 Mar, 2009 [facility] [address] [address] October, [facility] [id number] [place] [address] Jun, [facility] [address] [address] Jun, [facility] [id number] [place] [address] Aug, [facility] [address] [address] May, [facility] [address] [address] May, IMMUNIZATIONS No Known Immunizations SOCIAL HISTORY Never Assessed REASON FOR VISIT PLAN OF CARE VITAL SIGNS MEDICATIONS Unknown Medications RESULTS No Results PROCEDURES Procedure Date Ordered Result Body Site PSYCH DIAGNOSTIC EVALUATION December 24, 2013 INSTRUCTIONS MEDICATIONS ADMINISTERED No Known Medications MEDICAL [...]
--- OUTSIDE RECORDS SUMMARY | 2019-08-21 07:48 | XMS REPORT | Clinical Summary ---
Author Author [facility] Organization [facility] Address [address] [address] Phone Care Team Providers Care Wood Carving Lathe Operator Name Role Phone VERA SANDERSON MD PCP Conditions or Problems Problem Name Problem Code Onset Date Status Entry Date Provider Comment Standard Description Annotate PHARYNGITIS ACUTE 249306132 (SNOMED CT) Active VERA SANDERSON MD Acute pharyngitis FAMILY HISTORY OF ASTHMA 759041454 (SNOMED CT) Active VERA SANDERSON MD Family history of asthma Medications No information available. Medications Administered No information available. Allergies, Adverse Reactions, Alerts No information available. Results No information available. Plan of Care Type Date Detail Pending order STREP SCREEN/TCx (se nd out/bill ins) Procedures Code Procedure Name Date Entry Date [id number] STREP SCREEN/TCx (send out/bill ins) Vital Signs No information available.
== END 2019-08-12 10:30 | disposition home or self-care (01) ==
LOC: EDUNIT# 08:00 → ER 08:01
DX: F41.0 Panic disorder [episodic paroxysmal anxiety] (principal); M94.0 Chondrocostal junction syndrome [Tietze]; J40 Bronchitis, not specified as acute or chronic; Z88.5 Allergy status to narcotic agent
CPT/HCPCS: 36415; 71045; 80053; 84484; 85025; 87804; 93005; 96372

== ENCOUNTER 2019-09-01 22:30 | Emergency (ER) | payer SELFPAY ==
[~2019-09-01] VITALS: Ht 182.8 cm; Wt 113.6 kg
[~2019-09-01 22:30] MED LIST changes: +HYDR25CA PO; -LIDO15SO2 MM; +LIDO20SO23 MM
[2019-09-01] MEDS ORDERED: IBUPROFEN 800 MG (MOTRIN) TAB PO ONE (22:45)
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
[2019-09-02 00:27] VITALS: BP 132/80
--- NOTE | 2019-09-02 06:22 | Diagnostic Imaging Report ---
HISTORY: Pain in the 4th digit of the left hand after trauma TECHNIQUE: 3 views of the left hand COMPARISON: 02/16/2019 FINDINGS: No acute fracture or dislocation is seen in the left hand. Alignment appears normal. Joint spaces are preserved. IMPRESSION: 1. No acute osseous abnormality is seen in the left hand. Dictated by: Dictated on workstation # [id number]
== END 2019-09-02 00:28 | disposition home or self-care (01) ==
LOC: EDUNIT# 22:30 → ER 22:32
DX: S60.222A Contusion of left hand, initial encounter (principal); Z88.5 Allergy status to narcotic agent; Y04.0XXA Assault by unarmed brawl or fight, initial encounter
CPT/HCPCS: 73130

== ENCOUNTER 2019-12-08 13:14 | Emergency (ER) | payer SELFPAY ==
[~2019-12-08] VITALS: Ht 182.9 cm; Wt 113.4 kg
[2019-12-08] MEDS ORDERED: ORPHENADRINE 60 MG/2 ML (NORFLEX) AMP IV ONE (13:15)
[2019-12-08] MEDS ORDERED: KETOROLAC 30 MG/ML VIAL IVP ONE (13:15)
[2019-12-08] MEDS ORDERED: morphine INJ 10 MG/ML 1ML (SYR OR VIAL) IVP STA (13:19)
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
[2019-12-08] MEDS ORDERED: KETAMINE/NaCl 50 MG/5 ML SYRINGE (ED ONLY) IV ONE (14:30)
[2019-12-08] MEDS ORDERED: NS (IVPB) 250 ML IV ONE (14:30)
[2019-12-08 14:31] LABS: BASOPHILS # (AUTO) 0.1 10^3/uL (0.0-0.1); BASOPHILS % (AUTO) 1 % (0-10); EOSINOPHILS # (AUTO) 0.1 10^3/uL (0.0-0.3); EOSINOPHILS % (AUTO) 1 % (0-10); HEMATOCRIT 48 % (40-54); HEMOGLOBIN 16.7 G/DL (13.3-17.7); LYMPHOCYTES # (AUTO) 2.5 X 10^3 (1.0-4.0); LYMPHOCYTES % (AUTO) 35 % (12-44); MEAN CORPUSCULAR HEMOGLOBIN 29 PG (25-34); MEAN CORPUSCULAR HGB CONC 35 G/DL (32-36); MEAN CORPUSCULAR VOLUME 82 FL (80-99); MONOCYTES # (AUTO) 0.5 X 10^3 (0.0-1.0); MONOCYTES % (AUTO) 6 % (0-12); NEUTROPHILS % (AUTO) 57 % (42-75); PLATELET COUNT 166 10^3/uL (130-400); RED CELL DISTRIBUTION WIDTH 13.4 % (10.0-14.5); WHITE BLOOD COUNT 7.1 10^3/uL (4.3-11.0)
[2019-12-08 14:32] LABS: BILIRUBIN,URINE NEGATIVE (NEGATIVE); CLARITY,URINE CLEAR; COLOR,URINE YELLOW; GLUCOSE, URINE (UA) NEGATIVE (NEGATIVE); KETONES,URINE NEGATIVE (NEGATIVE); LEUKOCYTE ESTERASE ,URINE NEGATIVE (NEGATIVE); NITRITE,URINE NEGATIVE (NEGATIVE); PH,URINE 6.5 (5-9); PROTEIN,URINE NEGATIVE (NEGATIVE)
[2019-12-08 14:41] LABS: AMORPHOUS SEDIMENT,UR FEW AMOR URATES /LPF; BACTERIA,URINE NEGATIVE /HPF
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
[2019-12-08 14:46] LABS: AMPHETAMINE SCREEN, URINE NEGATIVE (NEGATIVE); BARBITURATE SCREEN URINE NEGATIVE (NEGATIVE); BENZODIAZEPINES SCREEN URINE NEGATIVE (NEGATIVE); CANNABINOID SCREEN, URINE POSITIVE (NEGATIVE); COCAINE SCREEN URINE NEGATIVE (NEGATIVE); METHADONE STAT NEGATIVE (NEGATIVE); METHAMPHETAMINE SCREEN URINE S NEGATIVE (NEGATIVE); OPIATE SCREEN URINE NEGATIVE (NEGATIVE); OXYCODONE STAT NEGATIVE (NEGATIVE); PROPOXYPHENE STAT NEGATIVE (NEGATIVE); TRICYCLIC ANTIDEPRESSANTS SCRE NEGATIVE (NEGATIVE)
[2019-12-08] MEDS ORDERED: PRD20T PO (14:58)
[2019-12-08] MEDS ORDERED: OXYC-471 PO (14:58)
[2019-12-08] MEDS ORDERED: ONDANSETRON 4 MG/2 ML (SDV) Z0FRAN IVP ONE (15:30)
[2019-12-08 16:13] VITALS: BP 127/69
== END 2019-12-08 16:13 | disposition home or self-care (01) ==
LOC: EDUNIT# 13:14 → ER 13:15
DX: M54.16 Radiculopathy, lumbar region (principal); M48.07 Spinal stenosis, lumbosacral region; M51.37 Other intervertebral disc degeneration, lumbosacral region; J45.909 Unspecified asthma, uncomplicated; Z88.5 Allergy status to narcotic agent; Z79.52 Long term (current) use of systemic steroids; Z90.49 Acquired absence of other specified parts of digestive tract
CPT/HCPCS: 36415; 72148; 80306; 81000; 85025

== ENCOUNTER 2020-03-24 15:34 | Emergency (ER) | payer SELFPAY ==
[~2020-03-24] VITALS: Ht 182.8 cm; Wt 113.3 kg
[~2020-03-24 15:34] MED LIST changes: +OXYC-471 PO
[2020-03-24 16:33] LABS: BASOPHILS % (AUTO) 1 % (0-10); EOSINOPHILS % (AUTO) 1 % (0-10); HEMATOCRIT 49 % (40-54); HEMOGLOBIN 16.5 g/dL (13.3-17.7); LYMPHOCYTES # (AUTO) 1.7 10^3/uL (1.0-4.0); LYMPHOCYTES % (AUTO) 28 % (12-44); MEAN CORPUSCULAR HEMOGLOBIN 28 pg (25-34); MEAN CORPUSCULAR HGB CONC 34 g/dL (32-36); MEAN CORPUSCULAR VOLUME 84 fL (80-99); MEAN PLATELET VOLUME 13.2 fL (9.0-12.2); MONOCYTES # (AUTO) 0.3 10^3/uL (0.0-1.0); MONOCYTES % (AUTO) 5 % (0-12); NEUTROPHILS % (AUTO) 65 % (42-75); PLATELET COUNT 143 10^3/uL (130-400); WHITE BLOOD COUNT 6.2 10^3/uL (4.3-11.0)
[2020-03-24 16:44] LABS: ALANINE AMINOTRANSFERASE 33 U/L (0-55); ALKALINE PHOSPHATASE 53 U/L (40-136); BUN/CREATININE RATIO 13; CALCIUM 9.7 MG/DL (8.5-10.1); CARBON DIOXIDE 22 MMOL/L (21-32); CHLORIDE 105 MMOL/L (98-107); GFR ESTIMATED > 60; GLUCOSE 81 MG/DL (70-105); POTASSIUM 3.7 MMOL/L (3.6-5.0); SODIUM 138 MMOL/L (135-145); TOTAL PROTEIN 7.9 GM/DL (6.4-8.2)
[2020-03-24] MEDS ORDERED: GUAI-370 PO (16:56)
--- NOTE | 2020-03-24 16:58 | ED Cough/URI ---
General Chief Complaint: Cough/Cold/Flu Symptoms Stated Complaint: COUGHING/DIZZINESS/CHEST TIGHTNESS Nursing Triage Note: PT PRESENTS TO ED VIA POV FOR CHILLS, MALAISE, COUGH, LIGHTHEADEDNESS, NAUSEA X 2 DAYS. Sepsis Screen: No Definite Risk History of Present Illness Date Seen by Provider: Mar 24, 2020 Time Seen by Provider: 16:15 Initial Comments 19 -year-old male patient presents for sinus pressure, postnasal drainage, and cough. He reports a productive cough at times. Reports he has been feeling congested and lightheaded at times. He is concerned because approximately 4 weeks ago he was around a relative who tested positive for COVID. He has had no loss of smell or taste. He was tested for COVID approximately 2 months ago and was negative. No current household members have COVID symptoms. He is unemployed. He does have a history of panic disorder. He does not have a primary care provider. Timing/Duration: intermittent Severity/Quality: moderate, productive cough Associated Symptoms: cough, nasal congestion, nasal drainage Allergies and Home Medications Allergies Coded Allergies: hydrocodone (Verified Allergy, Severe, RASH , 05/30/18) Home Medications Cefdinir 300 Mg Capsule, 300 MG PO twice a day Prescribed by: EDMAR BAR on 05/30/18 1019 Cephalexin 500 Mg Capsule, 500 MG PO TID Prescribed by: WALI MAHARAJ on 02/16/19 1357 Guaifenesin/Pseudoephedrne HCl 1 Each Tab.er.12h, 1 EACH PO BID Prescribed by: KRISTINA MAGALLANES on 03/24/20 1656 Hydroxyzine Pamoate 25 Mg Capsule, 25 MG PO Q6H PRN for ANXIETY Prescribed by: MILANA NOONAN on 08/12/19 1056 Omeprazole 20 Mg Tablet.dr, 20 MG PO BID Prescribed by: MILANA NOONAN on 03/30/192018 Ondansetron 4 Mg Tab.rapdis, 4 MG PO Q6H PRN for NAUSEA/VOMITING-1ST LINE Prescribed by: MILANA NOONAN on 03/30/192018 Oxycodone HCl/Acetaminophen 1 Each Tablet, 1 EACH PO Q4H PRN for PAIN-MODERATE Prescribed by: WALI MAHARAJ on 12/08/19 1458 Prednisone 20 Mg Tab, 40 MG PO DAILY Prescribed by: WALI MAHARAJ on 12/08/19 1458 Sulfamethoxazole/Trimethoprim 1 Each Tablet, 1 EACH PO TID Prescribed by: JENNIFER LOPEZ on 05/31/18 1106 Tramadol HCl 50 Mg Tablet, 50 MG PO Q6H PRN for PAIN-MODERATE Prescribed by: WALI MAHARAJ on 02/16/19 1357 Patient Home Medication List Home Medication List Reviewed: Yes Review of Systems Review of Systems Constitutional: see HPI, malaise EENTM: see HPI, nose congestion, throat pain Respiratory: see HPI, cough; No dyspnea on exertion, No hemoptysis; phlegm; No short of breath, No wheezing Cardiovascular: no symptoms reported, see HPI Gastrointestinal: no symptoms reported, see HPI Psychiatric/Neurological: See HPI, Anxiety All Other Systems Reviewed Negative Unless Noted: Yes Past Mcfbygg-Xbqmjg-Tqnymv Hx Past Med/Social Hx: Reviewed Nursing Past Med/Soc Hx Patient Social History Alcohol Use: Rarely Uses Number of Drinks Today: AA Alcohol Beverage of Choice: Beer Recreational Drug Use: Yes Drug of Choice: POT Smoking Status: Never a Smoker 2nd Hand Smoke Exposure: No Recent Foreign Travel: No Contact w/Someone Who Travel: No Recent Infectious Disease Expo: No Recent Hopitalizations: No Physical Abuse: No Sexual Abuse: No Mistreated: No Fear: No Immunizations Up To Date Tetanus Booster (TDap): Less than 5yrs PED Vaccines UTD: Yes Date of Influenza Vaccine: Apr 01, 2016 Seasonal Allergies Seasonal Allergies: Yes Past Medical History Surgeries: Yes (DENTAL SURGERY TODDLER. hematoma evacuation 09/29/[address] marcano.) Adenoidectomy, Appendectomy, Tonsillectomy Respiratory: Yes Asthma Cardiac: No Neurological: No Reproductive Disorders: No Sexually Transmitted Disease: No Genitourinary: No Gastrointestinal: Yes Chronic Constipation Musculoskeletal: Yes Chronic Back Pain, Fractures Endocrine: No HEENT: No Tonsilitis Cancer: No Psychosocial: No Integumentary: No Blood Disorders: No Family Medical History Family history: Diabetes mellitus grandmother paternal aunt aunt uncle paternal No Pertinent Family Hx Physical Exam Vital Signs - First Documented 03/24/20 03/24/20 16:04 17:23 Temp 37.0 Pulse 69 Resp 20 B/P (MAP) 134/93 (107) Pulse Ox 97 O2 Delivery Room Air Capillary Refill : Less Than 3 Seconds Height: 5'11.00" Weight: 240lbs. 0.0oz. [id number]; 33.00 BMI Method:Stated General Appearance: WD/WN, no apparent distress Eyes: Bilateral Eye Normal Inspection, Bilateral Eye PERRL, Bilateral Eye EOMI HEENT: PERRL/EOMI, normal ENT inspection, TMs normal, pharynx normal, other (tenderness to palpation over the frontal sinuses) Neck: non-tender, full range of motion, supple, normal inspection; No lymphadenopathy (R), No lymphadenopathy (L) Respiratory: chest non-tender, lungs clear, normal breath sounds Cardiovascular: normal peripheral pulses, no edema, no murmur Gastrointestinal: normal bowel sounds, non tender, soft Extremities: normal range of motion, non-tender, normal inspection, no pedal edema, normal capillary refill Neurologic/Psychiatric: no motor/sensory deficits, alert, normal mood/affect, oriented x 3 Skin: normal color, warm/dry Progress/Results/Core Measures Suspected Sepsis Recent Fever Within 48 Hours: Yes Infection Criteria Present: None New/Unexplained Altered Menta: No Sepsis Screen: No Definite Risk SIRS Temperature: Pulse: 69 Respiratory Rate: 20 Laboratory Tests 03/24/20 16:05: White Blood Count 6.2 Blood Pressure 134 /93 Mean: 107 Laboratory Tests 03/24/20 16:05: Creatinine 0.90, Platelet Count 143, Total Bilirubin 1.0 Results/Orders Lab Results Laboratory Tests Test 03/24/20 16:05 03/24/20 16:30 Range/Units White Blood Count 6.2 4.3-11.0 10^3/uL Red Blood Count 5.84 H 4.30-5.52 10^6/uL Hemoglobin 16.5 13.3-17.7 g/dL Hematocrit 49 40-54 % Mean Corpuscular Volume 84 80-99 fL Mean Corpuscular Hemoglobin 28 25-34 pg Mean Corpuscular Hemoglobin Concent 34 32-36 g/dL Red Cell Distribution Width 12.3 10.0-14.5 % Platelet Count 143 130-400 10^3/uL Mean Platelet Volume 13.2 H 9.0-12.2 fL Immature Granulocyte % (Auto) 0 % Neutrophils (%) (Auto) 65 42-75 % Lymphocytes (%) (Auto) 28 12-44 % Monocytes (%) (Auto) 5 0-12 % Eosinophils (%) (Auto) 1 0-10 % Basophils (%) (Auto) 1 0-10 % Neutrophils # (Auto) 4.0 1.8-7.8 10^3/uL Lymphocytes # (Auto) 1.7 1.0-4.0 10^3/uL Monocytes # (Auto) 0.3 0.0-1.0 10^3/uL Eosinophils # (Auto) 0.0 0.0-0.3 10^3/uL Basophils # (Auto) 0.0 0.0-0.1 10^3/uL Immature Granulocyte # (Auto) 0.0 0.0-0.1 10^3/uL Sodium Level 138 135-145 MMOL/L Potassium Level 3.7 3.6-5.0 MMOL/L Chloride Level 105 98-107 MMOL/L Carbon Dioxide Level 22 21-32 MMOL/L Anion Gap 11 5-14 MMOL/L Blood Urea Nitrogen 12 7-18 MG/DL Creatinine 0.90 0.60-1.30 MG/DL Estimat Glomerular Filtration Rate > 60 BUN/Creatinine Ratio 13 Glucose Level 81 70-105 MG/DL Calcium Level 9.7 8.5-10.1 MG/DL Corrected Calcium 8.5-10.1 MG/DL Total Bilirubin 1.0 0.1-1.0 MG/DL Aspartate Amino Transf (AST/SGOT) 30 5-34 U/L Alanine Aminotransferase (ALT/SGPT) 33 0-55 U/L Alkaline Phosphatase 53 40-136 U/L Troponin I < 0.028 <0.028 NG/ML Total Protein 7.9 6.4-8.2 GM/DL Albumin 5.0 H 3.2-4.5 GM/DL My Orders Orders - KRISTINA MAGALLANES Cbc With Automated Diff (03/24/20 16:27) Comprehensive Metabolic Panel (03/24/20 16:27) Troponin I (03/24/20 16:27) Coronavirus Sars-Cov-2 So 2018 (03/24/20 16:27) Vital Signs/I&O 03/24/20 03/24/20 16:04 17:23 Temp 37.0 Pulse 69 91 Resp 20 18 B/P (MAP) 134/93 (107) 127/80 Pulse Ox 97 100 O2 Delivery Room Air Capillary Refill : Less Than 3 Seconds Blood Pressure Mean: 107 Progress Note : Time: 16:15 Progress Note Patient seen and evaluated, EKG lab work and COVID-19 swab. 1700 labs all normal. Discharge instructions and return precautions reviewed wit h the patient. Patient was encouraged to quarantine until his lab results are called to him. ECG Initial ECG Impression Date: Mar 24, 2020 Initial ECG Impression Time: 15:52 Initial ECG Rate: 63 Initial ECG Rhythm: Normal Sinus Initial ECG Intervals: Normal Initial ECG Intervals SC 149, QRSD 107, QT 387, QTC 397. [place] P 28, QRS 18, T 19. Initial ECG Impression: Normal Initial ECG Comparisson: Unchanged Departure Impression Primary Impression: Sinus congestion Additional Impressions: Viral URI with cough Person under investigation for COVID-19 Disposition: 01 HOME, SELF-CARE Condition: Improved Departure-Patient Inst. Decision time for Depature: 16:50 Referrals: [facility]/REESE GUTHRIE,LOCAL PHYSICIAN (PCP) Primary Care Physician Patient Instructions: Coronavirus Disease 2019 (COVID-19) Tests, Viral Upper Respiratory Infection, Adult (DC) Add. Discharge Instructions: Continue to usual Trudi pot every 4 hours. Take the Mucinex D as prescribed. You will need to quarantine at home until your test results are called to you. Further quarantine or isolation will be determined by the health department, if your test is positive. Alternate between Tylenol 650 mg and ibuprofen 600 mg every 4 hours for fever or pain. Increase water intake, 16 ounces every 2 hours while awake. Establish care with a primary care provider at [facility]. Return to the emergency department for new, urgent health care problems. All discharge instructions reviewed with patient and/or family. Voiced understanding. Scripts Guaifenesin/Pseudoephedrne HCl (Mucinex D ER 600-60 mg Tablet) 1 Each Tab.er.12h 1 EACH PO BID, #30 TAB 0 Refills Prov: KRISTINA MAGALLANES 03/24/20 KRISTINA MAGALLANES Mar 24, 2020 16:58
[2020-03-24 17:23] VITALS: BP 127/80
== END 2020-03-24 17:23 | disposition home or self-care (01) ==
LOC: EDUNIT# 15:34 → ER 15:35
DX: J06.9 Acute upper respiratory infection, unspecified (principal); J45.909 Unspecified asthma, uncomplicated; G89.29 Other chronic pain; M54.9 Dorsalgia, unspecified; Z20.828 Contact with and (suspected) exposure to other viral communicable diseases; Z88.5 Allergy status to narcotic agent; Z79.52 Long term (current) use of systemic steroids; Z79.891 Long term (current) use of opiate analgesic
CPT/HCPCS: 80053; 84484; 85025; 93005; 99284; U0002; 36415; 87635

== ENCOUNTER 2020-04-02 21:43 | Emergency (ER) | payer SELFPAY ==
[~2020-04-02] VITALS: Ht 182.8 cm; Wt 122.4 kg
[~2020-04-02 21:43] MED LIST changes: +GUAI-370 PO
[2020-04-02] MEDS ORDERED: KETOROLAC 60 MG/2 ML VIAL IM ONE (22:15)
[2020-04-02] MEDS ORDERED: MECLIZINE 25 MG (ANTIVERT) TAB PO ONE (22:15)
[2020-04-02] MEDS ORDERED: ONDANSETRON 4 MG (ZOFRAN) ORAL DISSOLVE TAB PO ONE (22:15)
--- NOTE | 2020-04-02 22:19 | ED General ---
General Stated Complaint: DIZZINESS/SOA/BLURRED VISION/UNK COVID TEST Source of Information: Patient Exam Limitations: No Limitations History of Present Illness Date Seen by Provider: Apr 02, 2020 Time Seen by Provider: 22:04 Initial Comments The patient presents to the ER by private conveyance from home with chief complaint of dizziness, headache, nausea and vomiting worse in the past couple days. He has some photophobia. He has been having symptoms of a viral upper respiratory tract for approximately 10 days. He's not had any fever. He has not been ill tolerate medicines because of his dizziness and nausea. His ears do not hurt. He is not having a sore throat. He was tested a week ago in the ER for COVID 19 and that was negative. He typically follows with Dr. Britta Mason. Allergies and Home Medications Allergies Coded Allergies: hydrocodone (Verified Allergy, Severe, RASH , 05/30/18) Home Medications Cefdinir 300 Mg Capsule, 300 MG PO twice a day Prescribed by: EDMAR BAR on 05/30/18 1019 Cephalexin 500 Mg Capsule, 500 MG PO TID Prescribed by: WALI MAHARAJ on 02/16/19 1357 Guaifenesin/Pseudoephedrne HCl 1 Each Tab.er.12h, 1 EACH PO BID Prescribed by: KRISTINA MAGALLANES on 03/24/20 1656 Hydroxyzine Pamoate 25 Mg Capsule, 25 MG PO Q6H PRN for ANXIETY Prescribed by: MILANA NOONAN on 08/12/19 1056 Omeprazole 20 Mg Tablet.dr, 20 MG PO BID Prescribed by: MILANA NOONAN on 03/30/192018 Ondansetron 4 Mg Tab.rapdis, 4 MG PO Q6H PRN for NAUSEA/VOMITING-1ST LINE Prescribed by: MILANA NOONAN on 03/30/192018 Oxycodone HCl/Acetaminophen 1 Each Tablet, 1 EACH PO Q4H PRN for PAIN-MODERATE Prescribed by: WALI MAHARAJ on 12/08/19 1458 Prednisone 20 Mg Tab, 40 MG PO DAILY Prescribed by: WALI MAHARAJ on 12/08/19 1458 Sulfamethoxazole/Trimethoprim 1 Each Tablet, 1 EACH PO TID Prescribed by: JENNIFER LOPEZ on 05/31/18 1106 Tramadol HCl 50 Mg Tablet, 50 MG PO Q6H PRN for PAIN-MODERATE Prescribed by: WALI MAHARAJ on 02/16/19 1820 Patient Home Medication List Home Medication List Reviewed: Yes Review of Systems Review of Systems Constitutional: chills, dizziness; No fever; malaise EENTM: No ear discharge, No ear pain Respiratory: No cough, No short of breath Cardiovascular: No chest pain, No edema, No palpitations Gastrointestinal: No abdominal pain, No melena, No nausea Genitourinary: No discharge, No dysuria Musculoskeletal: No back pain, No joint pain All Other Systems Reviewed Negative Unless Noted: Yes Past Mlkeved-Mwwldd-Xzvcov Hx Patient Social History Alcohol Use: Occasionally Uses Alcohol Beverage of Choice: Beer Recreational Drug Use: Yes Drug of Choice: POT Smoking Status: Never a Smoker 2nd Hand Smoke Exposure: No Recent Foreign Travel: No Contact w/Someone Who Travel: No Recent Hopitalizations: No Immunizations Up To Date Tetanus Booster (TDap): Less than 5yrs PED Vaccines UTD: Yes Date of Influenza Vaccine: Apr 01, 2016 Seasonal Allergies Seasonal Allergies: Yes Past Medical History Surgeries: Yes (DENTAL SURGERY TODDLER. hematoma evacuation 09/29/[address] marcano.) Adenoidectomy, Appendectomy, Tonsillectomy Respiratory: Yes Asthma Cardiac: No Neurological: No Reproductive Disorders: No Sexually Transmitted Disease: No Genitourinary: No Gastrointestinal: Yes Chronic Constipation Musculoskeletal: Yes Chronic Back Pain, Fractures Endocrine: No HEENT: No Tonsilitis Cancer: No Psychosocial: No Integumentary: No Blood Disorders: No Family Medical History Family history: Diabetes mellitus grandmother paternal aunt aunt uncle paternal No Pertinent Family Hx Physical Exam Vital Signs Vital Signs - First Documented 04/02/20 22:15 Temp 37.0 Pulse 88 Resp 20 B/P (MAP) 132/82 (99) Pulse Ox 100 O2 Delivery Room Air Capillary Refill : Height, Weight, BMI Height: 5'11.00" Weight: 240lbs. 0.0oz. [id number]; 33.00 BMI Method:Stated General Appearance: WD/WN, Anxious, Mild Distress Eyes: Bilateral Eye Normal Inspection, Bilateral Eye PERRL, Bilateral Eye EOMI HEENT: PERRL/EOMI, Pharynx Normal, Moist Mucous Membranes, Other (bilateral TMs with some mild injection and bulging with mucoid effusion. Opaque mucus.) Neck: Full Range of Motion, Normal Inspection, Non Tender, Supple Respiratory: Chest Non Tender, Lungs Clear, Normal Breath Sounds, No Accessory Muscle Use, No Respiratory Distress Cardiovascular: Regular Rate, Rhythm, No Edema, Normal Peripheral Pulses Extremity: Normal Capillary Refill, Normal Inspection Neurologic/Psychiatric: Alert, Oriented x3 Progress/Results/Core Measures Suspected Sepsis SIRS Temperature: Pulse: Respiratory Rate: Blood Pressure / Mean: Results/Orders Micro Results Microbiology 04/02/20 Influenza Types A,B Antigen (REYES) - Final, Complete My Orders Orders - MILANA NOONAN Meclizine Tablet (Antivert Tablet) (04/02/20 22:15) Ondansetron Oral Dissolve Tab (Zofran (04/02/20 22:15) Ketorolac Injection (Toradol Injection) (04/02/20 22:15) Influenza A And B Antigens (04/02/20 22:21) Medications Given in ED Current Medications Medications Dose Ordered Sig/Maria Ines Route Start Time Stop Time Status Last Admin Dose Admin Ketorolac Tromethamine 60 mg ONCE ONCE IM 04/02/20 22:15 04/02/20 22:16 DC 04/02/20 22:22 60 MG Meclizine HCl 25 mg ONCE ONCE PO 04/02/20 22:15 04/02/20 22:16 DC 04/02/20 22:25 25 MG Ondansetron HCl 8 mg ONCE ONCE PO 04/02/20 22:15 04/02/20 22:16 DC 04/02/20 22:20 8 MG Vital Signs/I&O 04/02/20 22:15 Temp 37.0 Pulse 88 Resp 20 B/P (MAP) 132/82 (99) Pulse Ox 100 O2 Delivery Room Air Capillary Refill : Progress Note #1: Time: 22:12 Progress Note Meclizine, Toradol IM, ondansetron 8 mg ODT. Vital signs are aseptic. He does have labyrinthitis with middle ear effusion bilaterally. Put him on macrolide for potential middle ear infection bacterial. Progress Note #2: Time: 22:58 Progress Note The patient's nausea is under control. His dizziness is better however it is still there. The headache is better but still there. We plan to discharge him with a pack of meclizine and ondansetron as well as prescription sent to [facility]. We have encouraged him to follow-up with primary care doctor to discuss his concerns and try Flonase and other prophylactic medications and if this does not treat his symptoms appropriately or he has continued, recurrent head infections then he can follow-up with primary care and discuss ENT referral. Departure Impression Primary Impression: Labyrinthitis of both ears Additional Impression: Otitis media Qualified Codes: H65.113 - Acute and subacute allergic otitis media (mucoid) (sanguinous) (serous), bilateral Disposition: 01 HOME, SELF-CARE Condition: Stable Departure-Patient Inst. Decision time for Depature: 22:59 Referrals: NO,LOCAL PHYSICIAN (PCP/Family) Primary Care Physician Patient Instructions: Labyrinthitis, Serous Otitis Media (DC) Add. Discharge Instructions: Drink plenty of fluids to keep your mucous thin. Start taking Flonase 1 puff in each nostril daily for the next 30 days. You may also add Zyrtec or Claritin if you're not already using this daily. If you have dizziness you may take one or 2 tablets of meclizine every 6 hours as necessary for vertigo. Azithromycin take 2 tablets initially and then one tablet every day afterwards until they are gone for middle ear infection. Ondansetron one tablet under the tongue every 6 hours as necessary for nausea or vomiting. Expect to start to see improvement in 4 days. If you're not seeing improvement then follow up with your primary care doctor for reevaluation. If you continue to have recurrent infections and/or vertigo then you should follow-up with her primary care doctor for reevaluation. Explore potential medications to use versus referral to ear nose and throat surgeon. Scripts Ondansetron (Ondansetron Odt) 4 Mg Tab.rapdis 4 MG PO Q6H PRN for NAUSEA/VOMITING, #8 TAB 0 Refills Prov: MILANA NOONAN 04/02/20 Azithromycin (Azithromycin) 250 Mg Tablet 250 MG PO UD, #6 TAB 0 Refills TAKE 2 TABLETS ON DAY ONE THEN TAKE 1 TABLET DAILY FOR FOUR MORE DAYS Prov: MILANA NOONAN 04/02/20 Fluticasone Propionate (Fluticasone Propionate) 15.8 Ml [place].susp 15.8 ML NS DAILY for 30 Days, #1 SPRAY 0 Refills Prov: MILANA NOONAN 04/02/20 Meclizine HCl (Meclizine HCl) 25 Mg Tablet 25-50 MG PO Q6H PRN for VERTIGO, #30 TAB 0 Refills Prov: MILANA NOONAN 04/02/20 MILANA NOONAN Apr 02, 2020 22:19
[2020-04-02] MEDS ORDERED: RX-ONDANSETRON 4 MG ODT (ZOFRAN) PPK #4 PO STA (22:57)
[2020-04-02] MEDS ORDERED: RX-MECLIZINE HCL (ANTIVERT) 25 MG TAB #4 PPK PO STA (22:57)
[2020-04-02] MEDS ORDERED: MECL-149 PO (23:03)
[2020-04-02] MEDS ORDERED: AZIT250T12 PO (23:03)
[2020-04-02] MEDS ORDERED: FLUT15.845 NS (23:03)
[2020-04-02] MEDS ORDERED: ONDA4TAB11 PO (23:03)
[2020-04-02 23:44] VITALS: BP 132/83
== END 2020-04-02 23:15 | disposition home or self-care (01) ==
LOC: EDUNIT# 21:43 → ER 21:46
DX: H83.03 Labyrinthitis, bilateral (principal); H66.93 Otitis media, unspecified, bilateral; F41.9 Anxiety disorder, unspecified; G89.29 Other chronic pain; M54.9 Dorsalgia, unspecified; J45.909 Unspecified asthma, uncomplicated; Z83.3 Family history of diabetes mellitus; Z88.5 Allergy status to narcotic agent; Z20.828 Contact with and (suspected) exposure to other viral communicable diseases; Z79.891 Long term (current) use of opiate analgesic; Z79.52 Long term (current) use of systemic steroids
CPT/HCPCS: 87804

== ENCOUNTER 2020-07-02 14:05 | Emergency (ER) | payer SELFPAY ==
[~2020-07-02] VITALS: Ht 182.8 cm; Wt 122.4 kg
[~2020-07-02 14:05] MED LIST changes: +AZIT250T12 PO; +FLUT15.845 NS; +MECL-149 PO
[2020-07-02] MEDS ORDERED: KETOROLAC 30 MG/ML VIAL ONE (14:41)
[2020-07-02] MEDS ORDERED: ORPHENADRINE 60 MG/2 ML (NORFLEX) AMP (ED ONLY) ONE (14:41)
--- NOTE | 2020-07-02 14:48 | ED Cough/URI ---
General Chief Complaint: Cough/Cold/Flu Symptoms Stated Complaint: POSITIVE COVID Nursing Triage Note: PT PRESENTS TO ED VIA POV FROM HOME WITH COMPLAINTS OF FEVER, MALAISE, R SIDED CHEST TIGHTNESS, SOB WITH EXERTION, COUGH, AND FLOYD STARTING 06/29. PT REPORTS HE TESTED POSITIVE FOR COVID ON 06/30. PT REPORTS WHEN HE WOKE UP THIS AM HIS CHEST TIGHTNESS WAS WORSE, Sepsis Screen: No Definite Risk Source: patient Exam Limitations: no limitations History of Present Illness Date Seen by Provider: Jul 02, 2020 Time Seen by Provider: 14:46 Initial Comments Patient is a 20-year-old male who presents to the emergency department today with a chief complaint of generalized body aches, fatigue, cough, fevers and chills. Patient states he tested positive for coronavirus 2 days ago. Patient states he is not been able to sleep secondary to body aches. Patient states that he has sharp discomfort in his chest when he takes a deep breath or when he coughs. States he has lost his sense of taste and sense of smell. States that his bowels have been a little bit looser than normal, some diarrhea. Denies any dysfunction. No swelling in his legs or cramping in his calves. No rashes. Last dose of Tylenol was at 1000 mg at 3 AM. All other review of systems reviewed and negative except as stated. Timing/Duration: this morning Severity/Quality: moderate, productive cough Associated Symptoms: cough, dizziness, fever/chills, headache, muscle aches, nasal congestion Allergies and Home Medications Allergies Coded Allergies: hydrocodone (Verified Allergy, Severe, RASH , 05/30/18) Home Medications Azithromycin 250 Mg Tablet, 250 MG PO UD TAKE 2 TABLETS ON DAY ONE THEN TAKE 1 TABLET DAILY FOR FOUR MORE DAYS Prescribed by: MILANA NOONAN on 04/02/202302 Cefdinir 300 Mg Capsule, 300 MG PO twice a day Prescribed by: EDMAR BAR on 05/30/18 1019 Cephalexin 500 Mg Capsule, 500 MG PO TID Prescribed by: WALI MAHARAJ on 02/16/19 1357 Fluticasone Propionate 15.8 Ml [place].susp, 15.8 ML NS DAILY Prescribed by: MILANA NOONAN on 04/02/202302 Guaifenesin/Pseudoephedrne HCl 1 Each Tab.er.12h, 1 EACH PO BID Prescribed by: KRISTINA MAGALLANES on 03/24/20 1656 Hydroxyzine Pamoate 25 Mg Capsule, 25 MG PO Q6H PRN for ANXIETY Prescribed by: MILANA NOONAN on 08/12/19 1056 Meclizine HCl 25 Mg Tablet, 25-50 MG PO Q6H PRN for VERTIGO Prescribed by: MILANA NOONAN on 04/02/20 230 Omeprazole 20 Mg Tablet.dr, 20 MG PO BID Prescribed by: MILANA NOONAN on 03/30/192018 Ondansetron 4 Mg Tab.rapdis, 4 MG PO Q6H PRN for NAUSEA/VOMITING-1ST LINE Prescribed by: MILANA NOONAN on 03/30/192018 Ondansetron 4 Mg Tab.rapdis, 4 MG PO Q6H PRN for NAUSEA/VOMITING Prescribed by: MILANA NOONAN on 04/02/202302 Oxycodone HCl/Acetaminophen 1 Each Tablet, 1 EACH PO Q4H PRN for PAIN-MODERATE Prescribed by: WALI MAHARAJ on 12/08/19 145 Prednisone 20 Mg Tab, 40 MG PO DAILY Prescribed by: WALI MAHARAJ on 12/08/19 1458 Sulfamethoxazole/Trimethoprim 1 Each Tablet, 1 EACH PO TID Prescribed by: JENNIFER LOPEZ on 05/31/18 1106 Tramadol HCl 50 Mg Tablet, 50 MG PO Q6H PRN for PAIN-MODERATE Prescribed by: WALI MAHARAJ on 02/16/19 1357 Patient Home Medication List Home Medication List Reviewed: Yes Review of Systems Review of Systems Constitutional: chills, dizziness, fever, malaise EENTM: no symptoms reported Respiratory: cough Cardiovascular: no symptoms reported Gastrointestinal: no symptoms reported Genitourinary: no symptoms reported Musculoskeletal: muscle cramps Skin: no symptoms reported All Other Systems Reviewed Negative Unless Noted: Yes Past Hywseuu-Ymztxc-Iystsh Hx Patient Social History Alcohol Use: Rarely Uses Number of Drinks Today: AA Alcohol Beverage of Choice: Beer Recreational Drug Use: Yes Drug of Choice: POT Smoking Status: Never a Smoker 2nd Hand Smoke Exposure: No Recent Foreign Travel: No Contact w/Someone Who Travel: No Recent Infectious Disease Expo: No Recent Hopitalizations: No Physical Abuse: No Sexual Abuse: No Mistreated: No Fear: No Immunizations Up To Date Tetanus Booster (TDap): Less than 5yrs PED Vaccines UTD: Yes Date of Influenza Vaccine: Apr 01, 2016 Seasonal Allergies Seasonal Allergies: Yes Past Medical History Surgeries: Yes (DENTAL SURGERY TODDLER. hematoma evacuation 09/29/[address] marcano.) Adenoidectomy, Appendectomy, Tonsillectomy Respiratory: Yes Asthma Cardiac: No Neurological: No Reproductive Disorders: No Sexually Transmitted Disease: No Genitourinary: No Gastrointestinal: Yes Chronic Constipation Musculoskeletal: Yes Chronic Back Pain, Fractures Endocrine: No HEENT: No Tonsilitis Cancer: No Psychosocial: No Integumentary: No Blood Disorders: No Family Medical History Family history: Diabetes mellitus grandmother paternal aunt aunt uncle paternal No Pertinent Family Hx Physical Exam Vital Signs - First Documented 07/02/20 14:32 Temp 36.8 Pulse 73 Resp 18 B/P (MAP) 154/78 (103) Pulse Ox 98 O2 Delivery Room Air Capillary Refill : Less Than 3 Seconds Height: 5'11.00" Weight: 240lbs. 0.0oz. [id number]; 36.00 BMI Method:Stated General Appearance: WD/WN, mild distress Eyes: Bilateral Eye Normal Inspection, Bilateral Eye PERRL, Bilateral Eye EOMI HEENT: normal ENT inspection, TMs normal, pharynx normal Neck: full range of motion, supple, normal inspection Respiratory: lungs clear, normal breath sounds, no respiratory distress, no accessory muscle use Cardiovascular: regular rate, rhythm Gastrointestinal: non tender, soft Neurologic/Psychiatric: no motor/sensory deficits, alert, normal mood/affect, oriented x 3 Skin: normal color, warm/dry Progress/Results/Core Measures Suspected Sepsis Recent Fever Within 48 Hours: Yes Infection Criteria Present: Documented Infection New/Unexplained Altered Menta: No Sepsis Screen: No Definite Risk SIRS Temperature: Pulse: 73 Respiratory Rate: 18 Blood Pressure 154 /78 Mean: 103 Results/Orders My Orders Orders - JOSEPHINE PETERSON MD Ketorolac Injection (Toradol Injection) (07/02/20 14:41) Orphenadrine Inj (Ed Only) (Norflex Inje (07/02/20 14:41) Ketorolac Injection (Toradol Injection) (07/02/20 15:15) Orphenadrine Inj (Ed Only) (Norflex Inje (07/02/20 15:15) Medications Given in ED Current Medications Medications Dose Ordered Sig/Maria Ines Route Start Time Stop Time Status Last Admin Dose Admin Ketorolac Tromethamine 30 mg STK-MED ONCE .ROUTE 07/02/20 14:41 07/02/20 14:45 DC 07/02/20 14:49 30 MG Orphenadrine Citrate 60 mg STK-MED ONCE .ROUTE 07/02/20 14:41 07/02/20 14:45 DC 07/02/20 14:49 60 MG Vital Signs/I&O 07/02/20 07/02/20 14:32 14:32 Temp 36.8 Pulse 73 Resp 18 B/P (MAP) 154/78 (103) Pulse Ox 98 O2 Delivery Room Air Capillary Refill : Less Than 3 Seconds Blood Pressure Mean: 103 Progress Note : Time: 15:16 Progress Note 20-year-old male presents with a chief complaint of Covid positivity, generalized body aches, headache. Evaluation today includes a physical exam. Patient is treated in the emergency department with 30 mg of Toradol IM and 60 mg of Norflex IM. He is advised to take Tylenol and ibuprofen as needed for body aches and pains. He is encouraged to hydrate. He verbalizes understanding of his discharge instructions. All questions are sought and answered. Departure Impression Primary Impression: Coronavirus infection Disposition: 01 HOME, SELF-CARE Condition: Stable Departure-Patient Inst. Decision time for Depature: 15:18 Referrals: NO,LOCAL PHYSICIAN (PCP/Family) Primary Care Physician Patient Instructions: Coronavirus Disease 2019 (COVID-19) (DC) Add. Discharge Instructions: Drink plenty of fluids to stay well-hydrated. Alternate Tylenol and ibuprofen as needed for fever and body aches. Follow-up with your primary care physician. Return to the emergency room for any new, worsening or emergent symptoms. JOSEPHINE PETERSON MD Jul 02, 2020 14:48
[2020-07-02] MEDS ORDERED: ORPHENADRINE 60 MG/2 ML (NORFLEX) AMP (ED ONLY) IM ONE (15:15)
[2020-07-02] MEDS ORDERED: KETOROLAC 30 MG/ML VIAL IM ONE (15:15)
[2020-07-02 15:44] VITALS: BP 154/78
== END 2020-07-02 15:44 | disposition home or self-care (01) ==
LOC: EDUNIT# 14:05 → ER 14:07
DX: U07.1 COVID-19 (principal); G89.29 Other chronic pain; M54.9 Dorsalgia, unspecified; Z83.3 Family history of diabetes mellitus; Z88.5 Allergy status to narcotic agent; Z79.891 Long term (current) use of opiate analgesic; Z79.52 Long term (current) use of systemic steroids
CPT/HCPCS: 99284

== ENCOUNTER 2020-07-30 21:53 | Emergency (ER) | payer SELFPAY ==
[~2020-07-30 21:53] MED LIST changes: -OXYC-471 PO; +OXYC1TAB11 PO
== END 2020-07-30 22:25 | disposition left against medical advice (07) ==
LOC: EDUNIT# 21:53 → ER 21:55
DX: U07.1 COVID-19 (principal)

== ENCOUNTER 2020-08-15 23:59 | Emergency (ER) | payer SELFPAY ==
[~2020-08-15] VITALS: Ht 182.9 cm; Wt 122.5 kg
[2020-08-16] MEDS ORDERED: OXYMETAZOLINE (AFRIN) 0.05% NA 30 ML BTL STA (00:29)
[2020-08-16] MEDS ORDERED: AMOXICILLIN 500 MG (POLYMOX) CAP PO STA (00:44)
--- NOTE | 2020-08-16 00:51 | ED Cough/URI ---
General Chief Complaint: Head/Cervical Problems Stated Complaint: HEADACHE;COUGHING BLOOD;NOSE BLOOD Nursing Triage Note: Pt reports being post-covid, has been coughing up blood in mornings for last two weeks and has had nosebleeds more frequently. Pt reports that [employer], "my nose was bleeding so bad that I had to pull the clot out of nose with my fingers." Pt also c/o headache, took tylenol 3-4 hours [employer] with minimal relief, and no other medication being taken. Sepsis Screen: No Definite Risk Source: patient Exam Limitations: no limitations History of Present Illness Date Seen by Provider: Aug 16, 2020 Time Seen by Provider: 00:22 Initial Comments Here with report of coughing up blood in the mornings for the last few days and intermittently over the last week or 2. Has had bloody nose noted. Had Covid infection early July. Complains of right facial pain and headache that is pounding. Denies fevers currently. Reports that he had blood clot in his nose on the right side that he had to pull out. Denies breathing difficulties currently or cough. Did have an incident where he choked on a tamale a couple weeks ago but he was able to clear it. He has had some intermittent cough since then. Timing/Duration: getting worse Severity/Quality: moderate, dry cough Modifying Factors: Improves With Rest Associated Symptoms: sinus infection Allergies and Home Medications Allergies Coded Allergies: hydrocodone (Verified Allergy, Severe, RASH , 05/30/18) Home Medications Azithromycin 250 Mg Tablet, 250 MG PO UD TAKE 2 TABLETS ON DAY ONE THEN TAKE 1 TABLET DAILY FOR FOUR MORE DAYS Prescribed by: MILANA NOONAN on 04/02/202302 Cefdinir 300 Mg Capsule, 300 MG PO twice a day Prescribed by: EDMAR BAR on 05/30/18 1019 Cephalexin 500 Mg Capsule, 500 MG PO TID Prescribed by: WALI MAHARAJ on 02/16/19 1357 Fluticasone Propionate 15.8 Ml [place].susp, 15.8 ML NS DAILY Prescribed by: MILANA NOONAN on 04/02/202302 Guaifenesin/Pseudoephedrne HCl 1 Each Tab.er.12h, 1 EACH PO BID Prescribed by: RKISTINA MAGALLANES on 03/24/20 1656 Hydroxyzine Pamoate 25 Mg Capsule, 25 MG PO Q6H PRN for ANXIETY Prescribed by: MILANA NOONAN on 08/12/19 1056 Meclizine HCl 25 Mg Tablet, 25-50 MG PO Q6H PRN for VERTIGO Prescribed by: MILANA NOONAN on 04/02/20 230 Omeprazole 20 Mg Tablet.dr, 20 MG PO BID Prescribed by: MILANA NOONAN on 03/30/192018 Ondansetron 4 Mg Tab.rapdis, 4 MG PO Q6H PRN for NAUSEA/VOMITING-1ST LINE Prescribed by: MILANA NOONAN on 03/30/192018 Ondansetron 4 Mg Tab.rapdis, 4 MG PO Q6H PRN for NAUSEA/VOMITING Prescribed by: MILANA NOONAN on 04/02/202302 Oxycodone HCl/Acetaminophen 1 Each Tablet, 1 EACH PO Q4H PRN for PAIN-MODERATE Prescribed by: WALI MAHARAJ on 12/08/19 145 Prednisone 20 Mg Tab, 40 MG PO DAILY Prescribed by: WALI MAHARAJ on 12/08/19 1458 Sulfamethoxazole/Trimethoprim 1 Each Tablet, 1 EACH PO TID Prescribed by: JENNIFER LOPEZ on 05/31/18 1106 Tramadol HCl 50 Mg Tablet, 50 MG PO Q6H PRN for PAIN-MODERATE Prescribed by: WALI MAHARAJ on 02/16/19 1357 Patient Home Medication List Home Medication List Reviewed: Yes Review of Systems Review of Systems Constitutional: see HPI; No chills, No fever EENTM: epistaxis, nose congestion Respiratory: see HPI; No short of breath Cardiovascular: no symptoms reported Gastrointestinal: No nausea, No vomiting Musculoskeletal: No back pain, No muscle pain Skin: no symptoms reported Psychiatric/Neurological: Anxiety, Headache Past Gnvignt-Qqqfsn-Udabdg Hx Past Med/Social Hx: Reviewed Nursing Past Med/Soc Hx Patient Social History Alcohol Use: Occasionally Uses Number of Drinks Today: AA Alcohol Beverage of Choice: Beer Drug of Choice: POT Smoking Status: Never a Smoker 2nd Hand Smoke Exposure: No Recent Infectious Disease Expo: No Recent Hopitalizations: No Immunizations Up To Date Tetanus Booster (TDap): Unknown PED Vaccines UTD: Yes Date of Influenza Vaccine: Apr 01, 2016 Seasonal Allergies Seasonal Allergies: Yes Past Medical History Surgeries: Yes (DENTAL SURGERY TODDLER. hematoma evacuation 09/29/[address] kido.) Adenoidectomy, Appendectomy, Tonsillectomy Respiratory: Yes Asthma Cardiac: No Neurological: No Reproductive Disorders: No Sexually Transmitted Disease: No Genitourinary: No Gastrointestinal: Yes Chronic Constipation Musculoskeletal: Yes Chronic Back Pain, Fractures Endocrine: No HEENT: No Tonsilitis Cancer: No Psychosocial: No Integumentary: No Blood Disorders: No Family Medical History Reviewed Nursing Family Hx Family history: Diabetes mellitus grandmother paternal aunt aunt uncle paternal No Pertinent Family Hx Physical Exam Vital Signs - First Documented 08/16/20 00:06 Temp 35.5 Pulse 82 Resp 20 B/P (MAP) 149/88 (108) Pulse Ox 99 O2 Delivery Room Air Capillary Refill : Less Than 3 Seconds Height: 5'11.00" Weight: 240lbs. 0.0oz. [id number]; 36.00 BMI Method:Stated General Appearance: WD/WN, no apparent distress HEENT: PERRL/EOMI, pharynx normal, other (Right sinus tenderness and facial tenderness with moderate erythema and old blood to the right nasal mucosa with moderate redness to the left nasal mucosa and purulent mucus noted.) Neck: full range of motion, supple Respiratory: lungs clear, normal breath sounds Cardiovascular: regular rate, rhythm, no murmur Gastrointestinal: non tender, soft Neurologic/Psychiatric: alert, oriented x 3 Skin: normal color, warm/dry Progress/Results/Core Measures Suspected Sepsis Recent Fever Within 48 Hours: No Infection Criteria Present: Suspected New Infection New/Unexplained Altered Menta: No Sepsis Screen: No Definite Risk SIRS Temperature: Pulse: 82 Respiratory Rate: 20 Blood Pressure 149 /88 Mean: 108 Results/Orders My Orders Orders - IGNACIA BROWNING MD Chest Pa/Lat (2 View) (08/16/20 00:29) Oxymetazoline 0.05% Nasal [place] (Afrin 0. (08/16/20 00:29) Amoxicillin Capsule (Polymox Capsule) (08/16/20 00:44) Vital Signs/I&O 08/16/20 00:06 Temp 35.5 Pulse 82 Resp 20 B/P (MAP) 149/88 (108) Pulse Ox 99 O2 Delivery Room Air Capillary Refill : Less Than 3 Seconds Blood Pressure Mean: 108 Progress Note : Progress Note Seen and evaluated. Chest x-ray ordered. Afrin nasal spray 2 sprays to each nostril x1 now and will continue for 3 days total. Amoxicillin 1 g p.o. ordered for sinus infection. 0051: Chest x-ray negative. Discharged home with return precautions. Patient verbalized understanding of instructions and agreement with plan. Diagnostic Imaging Diagonstic Imaging: Xray Plain Films/CT/US/NM/MRI: chest Comments No acute findings on 2 view chest x-ray Reviewed: Reviewed by Me Departure Impression Primary Impression: Acute sinusitis Qualified Codes: J01.90 - Acute sinusitis, unspecified Additional Impression: Epistaxis Disposition: HOME, SELF-CARE Condition: Stable Departure-Patient Inst. Decision time for Depature: 00:52 Referrals: NO,LOCAL PHYSICIAN (PCP/Family) Primary Care Physician Patient Instructions: Nosebleeds (DC), Sinusitis, Adult (DC) Add. Discharge Instructions: All discharge instructions reviewed with patient and/or family. Voiced understanding. Use Afrin nasal spray 2 sprays to each nostril for 3 days only and then stop. Do not use more than 3 days. You may take ibuprofen 800 mg every 8 hours as needed for pain. You may also take Tylenol/acetaminophen 1000 mg every 8 hours as needed for pain. Drink plenty of fluids. Use humidifier in your room at night to decrease drying. Follow-up with your doctor in a few days for recheck. Return for worse pain, weakness, breathing problems, persistent nosebleeds or other concerns as needed. Take medications as directed. Scripts Amoxicillin (Amoxicillin) 500 Mg Capsule 1000 MG PO TID, #28 CAP 0 Refills Prov: IGNACIA BROWNING MD 08/16/20 IGNACIA BROWNING MD Aug 16, 2020 00:51
[2020-08-16] MEDS ORDERED: AMOX500C2 PO (00:54)
[2020-08-16 01:01] VITALS: BP 138/51
--- NOTE | 2020-08-16 07:03 | Diagnostic Imaging Report ---
EXAM: CHEST PA/LAT (2 VIEW) INDICATION: Cough. COMPARISON: Chest radiograph 08/12/2019. FINDINGS: Normal heart size and central pulmonary vascularity. No focal pulmonary opacity. No pleural effusion or pneumothorax. No acute osseous findings. IMPRESSION: No acute cardiopulmonary findings. Dictated by: Dictated on workstation # [id number]
== END 2020-08-16 01:00 | disposition home or self-care (01) ==
LOC: EDUNIT# 23:59 → ER 08-16 00:02
DX: J01.90 Acute sinusitis, unspecified (principal); R04.0 Epistaxis; J45.909 Unspecified asthma, uncomplicated; G89.29 Other chronic pain; M54.9 Dorsalgia, unspecified; Z88.5 Allergy status to narcotic agent; Z83.3 Family history of diabetes mellitus; Z79.52 Long term (current) use of systemic steroids; Z79.891 Long term (current) use of opiate analgesic
CPT/HCPCS: 71046

== ENCOUNTER 2020-11-04 02:46 | Emergency (ER) | payer SELFPAY ==
[~2020-11-04] VITALS: Ht 182.8 cm; Wt 125.0 kg
[2020-11-04 03:27] LABS: BASOPHILS % (AUTO) 1 % (0-10); EOSINOPHILS # (AUTO) 0.1 10^3/uL (0.0-0.3); EOSINOPHILS % (AUTO) 1 % (0-10); HEMATOCRIT 47 % (40-54); HEMOGLOBIN 15.7 g/dL (13.3-17.7); LYMPHOCYTES % (AUTO) 35 % (12-44); MEAN CORPUSCULAR HEMOGLOBIN 28 pg (25-34); MEAN CORPUSCULAR HGB CONC 33 g/dL (32-36); MEAN CORPUSCULAR VOLUME 85 fL (80-99); MEAN PLATELET VOLUME 12.8 fL (9.0-12.2); MONOCYTES # (AUTO) 0.6 10^3/uL (0.0-1.0); MONOCYTES % (AUTO) 7 % (0-12); NEUTROPHILS # (AUTO) 4.8 10^3/uL (1.8-7.8); NEUTROPHILS % (AUTO) 56 % (42-75); PLATELET COUNT 178 10^3/uL (130-400); WHITE BLOOD COUNT 8.6 10^3/uL (4.3-11.0)
[2020-11-04 03:48] LABS: BILIRUBIN,URINE NEGATIVE (NEGATIVE); CLARITY,URINE CLEAR; COLOR,URINE YELLOW; GLUCOSE, URINE (UA) NEGATIVE (NEGATIVE); KETONES,URINE NEGATIVE (NEGATIVE); LEUKOCYTE ESTERASE ,URINE NEGATIVE (NEGATIVE); NITRITE,URINE NEGATIVE (NEGATIVE); PROTEIN,URINE NEGATIVE (NEGATIVE)
[2020-11-04 03:54] LABS: AMYLASE 50 U/L (25-125)
[2020-11-04 03:55] LABS: CHLORIDE 104 MMOL/L (98-107); POTASSIUM 3.9 MMOL/L (3.6-5.0); SODIUM 142 MMOL/L (135-145)
--- NOTE | 2020-11-04 03:55 | ED General ---
General Chief Complaint: General Problems/Pain Stated Complaint: CP,BLOODY NOSE,COUGHING UP BLOOD Nursing Triage Note: PT REPORTS TO THE ED WALKING ON HIS OWN AND STATES THAT HE IS EXPERIENCING CHEST PAIN THAT COMES AND GOES. PT ALSO STATES HE IS COUGHING UP "DARK BLOOD" AND "SMALL BLOOD CLOTS" AT HOME AND HAD A NOSE BLEED AROUND 0200. Nursing Sepsis Screen: No Definite Risk Source of Information: Patient History of Present Illness Date Seen by Provider: November 04, 2020 Time Seen by Provider: 03:15 Initial Comments PT ARRIVES VIA POV FROM HOME PT STATES HE WOKE UP AT 0200 AND STARTED COUGHING, AND THEN HE HAD TROUBLE BREATHING AND THEN HE STARTED HAVING SHARP PAINS IN LEFT UPPER CHEST, AND THEN HE GOT REAL DIZZY AND HE STARTED GETTING REALLY WORRIED AT THE SAME TIME, HE COUGHED UP BLOOD AND HAD A BLOODY NOSE--RIGHT NARE VOMITED X 1 IN WAITING ROOM--NO BLOOD OR COFFEE-GROUND EMESIS HAS HAD "RUNNY STOOLS" FOR THE LAST DAY NO FEVER NO SORE THROAT NO LOSS OF TASTE OR SMELL NO ABDOMINAL PAIN NO HEADACHE NO BODY ACHES NO LOSS OF TASTE OR SMELL PT STATES HE WAS FINE WHEN HE WENT TO BED STATES PAIN IN CHEST COMES AND GOES AND IT IS DULL NOW. NOSEBLEED HAS STOPPED--DENIES ANY INJURY TO THE NOSE OR PICKING, OR SNORTING ANYTHING NO SHORTNESS OF BREATH NOW STATES SYMPTOMS ARE WORSE WHEN HE LAYS DOWN. NO NAUSEA NOW. PT TESTED + FOR COVID-19 ON 06/30/20--NO SIGNIFICANT ILLNESS, NO TREATMENT OR HOSPITALIZATION NO KNOWN SICK CONTACTS PT WITH MULTIPLE VISITS FOR VARIOUS COMPLAINTS PCP: [facility] Allergies and Home Medications Allergies Coded Allergies: hydrocodone (Verified Allergy, Severe, RASH , 05/30/18) Home Medications Amoxicillin 500 Mg Capsule, 1,000 MG PO TID Prescribed by: IGNACIA BROWNING on 08/16/20 0054 Azithromycin 250 Mg Tablet, 250 MG PO UD TAKE 2 TABLETS ON DAY ONE THEN TAKE 1 TABLET DAILY FOR FOUR MORE DAYS Prescribed by: MILANA NOONAN on 04/02/20 2303 Cefdinir 300 Mg Capsule, 300 MG PO twice a day Prescribed by: EDMAR BAR on 05/30/18 1019 Cephalexin 500 Mg Capsule, 500 MG PO TID Prescribed by: WALI MAHARAJ on 02/16/19 1357 Fluticasone Propionate 15.8 Ml Saxon.susp, 15.8 ML NS DAILY Prescribed by: MILANA NOONAN on 04/02/202302 Guaifenesin/Pseudoephedrne HCl 1 Each Tab.er.12h, 1 EACH PO BID Prescribed by: KRISTINA MAGALLANES on 03/24/20 1656 Hydroxyzine Pamoate 25 Mg Capsule, 25 MG PO Q6H PRN for ANXIETY Prescribed by: MILANA NOONAN on 08/12/19 1056 Meclizine HCl 25 Mg Tablet, 25-50 MG PO Q6H PRN for VERTIGO Prescribed by: MILANA NOONAN on 04/02/202302 Omeprazole 20 Mg Tablet.dr, 20 MG PO BID Prescribed by: MILANA NOONAN on 03/30/192018 Ondansetron 4 Mg Tab.rapdis, 4 MG PO Q6H PRN for NAUSEA/VOMITING-1ST LINE Prescribed by: MILANA NOONAN on 03/30/192018 Ondansetron 4 Mg Tab.rapdis, 4 MG PO Q6H PRN for NAUSEA/VOMITING Prescribed by: MILANA NOONAN on 04/02/202302 Oxycodone HCl/Acetaminophen 1 Each Tablet, 1 EACH PO Q4H PRN for PAIN-MODERATE Prescribed by: WALI MAHARAJ on 12/08/19 145 Prednisone 20 Mg Tab, 40 MG PO DAILY Prescribed by: WALI MAHARAJ on 12/08/19 1458 Sulfamethoxazole/Trimethoprim 1 Each Tablet, 1 EACH PO TID Prescribed by: JENNIFER LOPEZ on 05/31/18 1106 Tramadol HCl 50 Mg Tablet, 50 MG PO Q6H PRN for PAIN-MODERATE Prescribed by: WALI MAHARAJ on 02/16/19 1357 Patient Home Medication List Home Medication List Reviewed: Yes Review of Systems Review of Systems Constitutional: see HPI; No chills, No diaphoresis; dizziness; No fever, No malaise EENTM: see HPI, epistaxis; No nose congestion, No nose pain, No throat pain Respiratory: see HPI, cough, orthopnea, short of breath Cardiovascular: see HPI, chest pain; No edema, No Hx of Intervention, No syncope, No vascular heart diseas Gastrointestinal: see HPI; No abdominal pain; diarrhea, nausea, vomiting Genitourinary: no symptoms reported Musculoskeletal: no symptoms reported Skin: no symptoms reported Psychiatric/Neurological: See HPI, Anxiety Hematologic/Lymphatic: See HPI; Denies Anemia, Denies Blood Clots, Denies Easy Bleeding, Denies Easy Bruising, Denies Swollen Glands Immunological/Allergic: no symptoms reported Past Xrchnyn-Kbtvtu-Ifzvrg Hx Past Med/Social Hx: Reviewed and Corrections made Patient Social History Alcohol Use: Rarely Uses Alcohol Beverage of Choice: Beer Drug of Choice: MARIJUANA Smoking Status: Never a Smoker 2nd Hand Smoke Exposure: No Recent Infectious Disease Expo: No Recent Hopitalizations: No Substance type: Marijuana Immunizations Up To Date Tetanus Booster (TDap): Unknown PED Vaccines UTD: Yes Date of Influenza Vaccine: Apr 01, 2016 Seasonal Allergies Seasonal Allergies: Yes Past Medical History Surgeries: Yes (DENTAL SURGERY TODDLER;L BUTTOCK HEMATOMA EVACUATED 09/29/[address] WHITE ) Adenoidectomy, Appendectomy, Tonsillectomy Respiratory: Yes (ASTHMA CHILD) Asthma Cardiac: No Neurological: No Reproductive Disorders: No Sexually Transmitted Disease: No Genitourinary: No Gastrointestinal: Yes Chronic Constipation Musculoskeletal: Yes Chronic Back Pain, Fractures Endocrine: No HEENT: Yes (TONSILLECTOMY; DENTAL SURGERY CHILD) Tonsilitis Cancer: No Psychosocial: No Integumentary: Yes (TATTOOS) Blood Disorders: No Family Medical History Family history: Diabetes mellitus grandmother paternal aunt aunt uncle paternal No Pertinent Family Hx Physical Exam Vital Signs Vital Signs - First Documented 11/04/20 03:22 Temp 37.1 Pulse 86 Resp 13 B/P (MAP) 147/110 (122) Pulse Ox 97 O2 Delivery Room Air Capillary Refill : Less Than 3 Seconds Height, Weight, BMI Height: 5'11.00" Weight: 240lbs. 0.0oz. 108.307240la; 37.00 BMI Method:Stated General Appearance: No Apparent Distress, WD/WN, Other (DOES NOT APPEAR TO BE IN ANY DISTRESS OR DISCOMFORT AND DOES NOT APPEAR ILL) HEENT: PERRL/EOMI, TMs Normal, Pharynx Normal, Moist Mucous Membranes, Other (SCANT AMOUNT OF DRIED BLOOD IN RIGHT NARE. NO ACTIVE BLEEDING. NO NOSE OR SINUS TENDERNESS. NO DRAINAGE. NO BLOOD IN POSTERIOR PHARYNX) Neck: Normal Inspection Respiratory: Normal Breath Sounds, No Accessory Muscle Use, No Respiratory Distress, Other (TENDERNESS TO LEFT UPPER CHEST--PALPATION REPRODUCES PAIN ) Cardiovascular: Regular Rate, Rhythm, No Edema, No JVD, No Murmur, Normal Peripheral Pulses Gastrointestinal: Non Tender, Soft Back: No CVA Tenderness Extremity: Normal Inspection Neurologic/Psychiatric: Alert, Oriented x3, No Motor/Sensory Deficits, Normal Mood/Affect, review scheduling coordinator II-XII Norm as Tested Skin: Normal Color, Warm/Dry, Tattoos/Piercings (MULTIPLE TATTOOS) Progress/Results/Core Measures Suspected Sepsis Recent Fever Within 48 Hours: No Infection Criteria Present: None New/Unexplained Altered Menta: No Sepsis Screen: No Definite Risk SIRS Temperature: Pulse: 86 Respiratory Rate: 13 Laboratory Tests 11/04/20 03:15: White Blood Count 8.6 Blood Pressure 147 /110 Mean: 122 Laboratory Tests 11/04/20 03:15: Creatinine 1.08, INR Comment 1.0, Platelet Count 178, Total Bilirubin 0.5 Results/Orders Lab Results Laboratory Tests Test 11/04/20 03:00 11/04/20 03:15 11/04/20 03:39 Range/Units Magnesium Level 2.0 1.6-2.4 MG/DL Troponin I < 0.028 <0.028 NG/ML B-Type Natriuretic Peptide < 10.0 <100.0 PG/ML Amylase Level 50 25-125 U/L Lipase 46 8-78 U/L Serum Alcohol < 10 <10 MG/DL White Blood Count 8.6 4.3-11.0 10^3/uL Red Blood Count 5.53 H 4.30-5.52 10^6/uL Hemoglobin 15.7 13.3-17.7 g/dL Hematocrit 47 40-54 % Mean Corpuscular Volume 85 80-99 fL Mean Corpuscular Hemoglobin 28 25-34 pg Mean Corpuscular Hemoglobin Concent 33 32-36 g/dL Red Cell Distribution Width 12.2 10.0-14.5 % Platelet Count 178 130-400 10^3/uL Mean Platelet Volume 12.8 H 9.0-12.2 fL Immature Granulocyte % (Auto) 0 % Neutrophils (%) (Auto) 56 42-75 % Lymphocytes (%) (Auto) 35 12-44 % Monocytes (%) (Auto) 7 0-12 % Eosinophils (%) (Auto) 1 0-10 % Basophils (%) (Auto) 1 0-10 % Neutrophils # (Auto) 4.8 1.8-7.8 10^3/uL Lymphocytes # (Auto) 3.0 1.0-4.0 10^3/uL Monocytes # (Auto) 0.6 0.0-1.0 10^3/uL Eosinophils # (Auto) 0.1 0.0-0.3 10^3/uL Basophils # (Auto) 0.0 0.0-0.1 10^3/uL Immature Granulocyte # (Auto) 0.0 0.0-0.1 10^3/uL Prothrombin Time 13.8 12.2-14.7 SEC INR Comment 1.0 0.8-1.4 Activated Partial Thromboplast Time 29 24-35 SEC Sodium Level 142 135-145 MMOL/L Potassium Level 3.9 3.6-5.0 MMOL/L Chloride Level 104 98-107 MMOL/L Carbon Dioxide Level 26 21-32 MMOL/L Anion Gap 12 5-14 MMOL/L Blood Urea Nitrogen 14 7-18 MG/DL Creatinine 1.08 0.60-1.30 MG/DL Estimat Glomerular Filtration Rate > 60 BUN/Creatinine Ratio 13 Glucose Level 69 L 70-105 MG/DL Calcium Level 9.5 8.5-10.1 MG/DL Corrected Calcium 8.5-10.1 MG/DL Total Bilirubin 0.5 0.1-1.0 MG/DL Aspartate Amino Transf (AST/SGOT) 34 5-34 U/L Alanine Aminotransferase (ALT/SGPT) 37 0-55 U/L Alkaline Phosphatase 62 40-136 U/L Total Protein 7.9 6.4-8.2 GM/DL Albumin 5.0 H 3.2-4.5 GM/DL Urine Color YELLOW Urine Clarity CLEAR Urine pH 6.0 5-9 Urine Specific [place] 1.025 H 1.016-1.022 Urine Protein NEGATIVE NEGATIVE Urine Glucose (UA) NEGATIVE NEGATIVE Urine Ketones NEGATIVE NEGATIVE Urine Nitrite NEGATIVE NEGATIVE Urine Bilirubin NEGATIVE NEGATIVE Urine Urobilinogen 1.0 < = 1.0 MG/DL Urine Leukocyte Esterase NEGATIVE NEGATIVE Urine RBC (Auto) NEGATIVE NEGATIVE Urine RBC NONE /HPF Urine WBC NONE /HPF Urine Crystals PRESENT H /LPF Urine Amorphous Sediment RARE URIAH URATES H /LPF Urine Bacteria NEGATIVE /HPF Urine Casts NONE /LPF Urine Mucus SMALL H /LPF Urine Culture Indicated NO Urine Opiates Screen NEGATIVE NEGATIVE Urine Oxycodone Screen NEGATIVE NEGATIVE Urine Methadone Screen NEGATIVE NEGATIVE Urine Propoxyphene Screen NEGATIVE NEGATIVE Urine Barbiturates Screen NEGATIVE NEGATIVE Ur Tricyclic Antidepressants Screen NEGATIVE NEGATIVE Urine Phencyclidine Screen NEGATIVE NEGATIVE Urine Amphetamines Screen NEGATIVE NEGATIVE Urine Methamphetamines Screen NEGATIVE NEGATIVE Urine Benzodiazepines Screen NEGATIVE NEGATIVE Urine Cocaine Screen NEGATIVE NEGATIVE Urine Cannabinoids Screen POSITIVE H NEGATIVE My Orders Orders - SULLY LAN DO Ekg Tracing (11/04/20 03:18) Monitor-Rhythm Ecg Trace Only (11/04/20 03:18) Ed Iv/Invasive Line Start (11/04/20 03:20) Cbc With Automated Diff (11/04/20 03:20) Comprehensive Metabolic Panel (11/04/20 03:20) Protime With Inr (11/04/20 03:20) Partial Thromboplastin Time (11/04/20 03:20) Chest Pa/Lat (2 View) (11/04/20 03:29) Alcohol (11/04/20 03:29) Amylase (11/04/20 03:29) BNP (11/04/20 03:29) Drug Screen Stat (Urine) (11/04/20 03:29) Lipase (11/04/20 03:29) Magnesium (11/04/20 03:29) Ua Culture If Indicated (11/04/20 03:29) Troponin I (11/04/20 03:29) Vital Signs/I&O 11/04/20 03:22 Temp 37.1 Pulse 86 Resp 13 B/P (MAP) 147/110 (122) Pulse Ox 97 O2 Delivery Room Air Capillary Refill : Less Than 3 Seconds 2 Blood Pressure Mean: 122 Progress Note : Progress Note PT ASYMPTOMATIC DURING ENTIRE ER STAY SLEPT /RESTED QUIETLY DURING ENTIRE STAY NO COUGH, NO DYSPNEA, NO NAUSEA/VOMITING, NO CHEST PAIN AND NO EPISTAXIS ECG Initial ECG Impression Date: November 04, 2020 Initial ECG Impression Time: 03:04 Initial ECG Rate: 75 Initial ECG Rhythm: Normal Sinus Diagnostic Imaging Comments CXR--NO ACUTE PROCESS, PENDING RADIOLOGIST REVIEW Reviewed: Reviewed by Me Departure Impression Primary Impression: Left-sided chest wall pain Additional Impression: Right-sided epistaxis Disposition: 01 HOME, SELF-CARE Condition: Stable Departure-Patient Inst. Decision time for Depature: 04:30 Referrals: NO,LOCAL PHYSICIAN (PCP/Family) Primary Care Physician Patient Instructions: Nosebleeds (DC), Costochondritis (DC), Chest Pain, Adult ED, Chest Pain That Is Not Caused by the Heart (DC) Add. Discharge Instructions: DO NOT RUB OR PICK AT OR BLOW NOSE TYLENOL AND MOTRIN NEEDED FOR PAIN MOIST HEAT TO CHEST AT 20 MINUTE INTERVALS FOLLOW UP WITH DR OF CHOICE IN 2-3 DAYS IF NO BETTER, RETURN TO ER IF WORSE All discharge instructions reviewed with patient and/or family. Voiced understanding. SULLY LAN DO November 04, 2020 03:55
[2020-11-04 03:57] LABS: CALCIUM 9.5 MG/DL (8.5-10.1)
[2020-11-04 03:58] LABS: GLUCOSE 69 MG/DL (70-105); TOTAL PROTEIN 7.9 GM/DL (6.4-8.2)
[2020-11-04 03:59] LABS: CARBON DIOXIDE 26 MMOL/L (21-32)
[2020-11-04 04:00] LABS: BILIRUBIN,TOTAL 0.5 MG/DL (0.1-1.0)
[2020-11-04 04:01] LABS: ALKALINE PHOSPHATASE 62 U/L (40-136); CREATININE SERUM 1.08 MG/DL (0.60-1.30); GFR ESTIMATED > 60
[2020-11-04 04:02] LABS: LIPASE 46 U/L (8-78)
[2020-11-04 04:03] LABS: AMPHETAMINE SCREEN, URINE NEGATIVE (NEGATIVE); BARBITURATE SCREEN URINE NEGATIVE (NEGATIVE); BENZODIAZEPINES SCREEN URINE NEGATIVE (NEGATIVE); CANNABINOID SCREEN, URINE POSITIVE (NEGATIVE); COCAINE SCREEN URINE NEGATIVE (NEGATIVE); METHADONE STAT NEGATIVE (NEGATIVE); METHAMPHETAMINE SCREEN URINE S NEGATIVE (NEGATIVE); OPIATE SCREEN URINE NEGATIVE (NEGATIVE); OXYCODONE STAT NEGATIVE (NEGATIVE); PROPOXYPHENE STAT NEGATIVE (NEGATIVE); TRICYCLIC ANTIDEPRESSANTS SCRE NEGATIVE (NEGATIVE)
[2020-11-04 04:03] LABS: BUN/CREATININE RATIO 13
[2020-11-04 04:04] LABS: ALANINE AMINOTRANSFERASE 37 U/L (0-55); PROTHROMBIN TIME PATIENT 13.8 SEC (12.2-14.7)
[2020-11-04 04:07] LABS: AMORPHOUS SEDIMENT,UR RARE AMOR URATES /LPF; BACTERIA,URINE NEGATIVE /HPF
[2020-11-04 04:53] VITALS: BP 142/92
--- NOTE | 2020-11-04 07:19 | Diagnostic Imaging Report ---
PATIENT HISTORY: CP. TECHNIQUE: Two views of the chest. COMPARISON: 08/16/2020 FINDINGS: The lung volumes are normal. No focal consolidation is seen. No large pleural effusion or pneumothorax is seen. The cardiomediastinal silhouette is normal in size and contour. No acute osseous abnormality is seen. IMPRESSION: No acute pulmonary abnormality seen. Dictated by: Dictated on workstation # [id number]
== END 2020-11-04 04:49 | disposition home or self-care (01) ==
LOC: EDUNIT# 02:46 → ER 02:49
DX: R07.89 Other chest pain (principal); R04.0 Epistaxis; J45.909 Unspecified asthma, uncomplicated; G89.29 Other chronic pain; M54.9 Dorsalgia, unspecified; Z88.5 Allergy status to narcotic agent; Z86.16 Personal history of COVID-19; Z79.891 Long term (current) use of opiate analgesic; Z79.52 Long term (current) use of systemic steroids
CPT/HCPCS: 71046; 80053; 80306; 81000; 82150; 83690; 83735; 83880; 84484; 85025; 85610; 85730; 93005; 93041; 99284; G0480; 36415; 80320

== ENCOUNTER 2021-02-17 22:40 | Emergency (ER) | payer SELFPAY ==
[~2021-02-17] VITALS: Ht 182.9 cm; Wt 122.5 kg
[~2021-02-17 22:40] MED LIST changes: -OXYC-464 PO; +OXYC1TAB15 PO; -SULF1TAB35 PO; +SULF1TAB38 PO
[2021-02-17 22:45] VITALS: BP 122/76
--- NOTE | 2021-02-17 22:51 | ED Upper Extremity ---
General Stated Complaint: R HAND INJURY Source: patient History of Present Illness Date Seen by Provider: Feb 17, 2021 Time Seen by Provider: 22:45 Initial Comments PT ARRIVES VIA POV FROM HOME STATES 20 MINUTES AGO, HE GOT MAD AND PUNCHED A SHED C/O PAIN TO RIGHT HAND STATES HIS 5TH FINGER FEELS NUMB, AND THE TIP OF HIS 4TH FINGER FEELS TINGLY NO OTHER INJURIES FROM THE INCIDENT STATES HE HAD A BOXER'S FRACTURE OF THIS HAND AT AGE 14--NO SURGERY PT WITH MULTIPLE ER VISITS FOR VARIOUS COMPLAINTS Allergies and Home Medications Allergies Coded Allergies: hydrocodone (Verified Allergy, Severe, RASH , 05/30/18) Home Medications Naproxen 500 Mg Tablet.dr, 500 MG PO BID Prescribed by: SULLY LAN on 02/17/21 2472 Patient Home Medication List Home Medication List Reviewed: Yes Review of Systems Constitutional: no symptoms reported Musculoskeletal: see HPI Skin: no symptoms reported Psychiatric/Neurological: See HPI Past Fjpcqdi-Ymorkf-Kbforp Hx Immunizations Up To Date Tetanus Booster (TDap): Unknown PED Vaccines UTD: Yes Seasonal Allergies Seasonal Allergies: Yes Past Medical History Surgeries: Yes (DENTAL SURGERY TODDLER;L BUTTOCK HEMATOMA EVACUATED 09/29/[address] WHITE ) Adenoidectomy, Appendectomy, Tonsillectomy Respiratory: Yes (ASTHMA CHILD) Asthma Cardiac: No Neurological: No Reproductive Disorders: No Sexually Transmitted Disease: No Genitourinary: No Gastrointestinal: Yes Chronic Constipation Musculoskeletal: Yes (RIGHT HAND BOXER'S FRACTURE AGE 14--NO SURGERY) Chronic Back Pain, Fractures Endocrine: No HEENT: Yes (TONSILLECTOMY; DENTAL SURGERY CHILD) Tonsilitis Cancer: No Psychosocial: No Integumentary: Yes (TATTOOS) Blood Disorders: No Family Medical History Family history: Diabetes mellitus grandmother paternal aunt aunt uncle paternal No Pertinent Family Hx TESTED + FOR COVID-19 ON 06/30/20--NO SIGNFICANT ILLNESS, NO HOSPITALIZATION OR TREATMENT Physical Exam Vital Signs Vital Signs - First Documented 02/17/21 22:45 Temp 36.1 Pulse 100 Resp 18 B/P (MAP) 122/76 (91) Pulse Ox 96 O2 Delivery Room Air Capillary Refill : Height, Weight, BMI Height: 5'11.00" Weight: 240lbs. 0.0oz. 108.458754ro; 37.00 BMI Method:Stated General Appearance: WD/WN, no apparent distress, other (DOES NOT APPEAR TO BE IN ANY DISCOMFORT OR DISTRESS) Elbow/Forearm: normal inspection Wrist: Yes normal inspection Hand: Right (OVER 5TH METACARPAL--TENDERNESS, SWELLING. LIMITED ROM DUE TO PAIN, BUT IS ABLE TO MAKE A FIST AND FULLY EXTEND ALL FINGERS. DOES HAVE SENSATION TO ALL FINGERS, WITH GOOD CAPILLARY REFILL. NO BRUISING OR WOUNDS TO THE AREA. ), bone tenderness, limited ROM, soft tissue tenderness, swelling Neurologic/Tendon: normal motor functions, normal tendon functions Neurologic/Psychiatric: no motor/sensory deficits, alert, normal mood/affect Skin: normal color, warm/dry, tattoos/piercings Progress/Results/Core Measures Results/Orders My Orders Orders - SULLY LAN DO Hand, Right, 3 Views (02/17/21 22:47) Vital Signs/I&O Diagnostic Imaging Comments XRAYS RIGHT HAND--NO ACUTE PROCESS, PENDING RADIOLOGIST REVIEW Reviewed: Reviewed by Me Departure Impression Primary Impression: Contusion of right hand Disposition: HOME, SELF-CARE Condition: Stable Departure-Patient Inst. Decision time for Depature: 23:20 Referrals: NO,LOCAL PHYSICIAN (PCP) Primary Care Physician MAIA BROUSSARD MD Patient Instructions: Contusion (DC) Add. Discharge Instructions: ICE TO AREA AT 20 MINUTE INTERVALS ELEVATE HAND MUCH POSSIBLE TYLENOL NEEDED FOR PAIN FOLLOW UP WITH DR. BROUSSARD, ORTHOPEDIC SURGEON, IN 1 WEEK IF NO BETTER Scripts Naproxen (Naproxen) 500 Mg Tablet. 500 MG PO BID, #20 TAB Prov: SULLY LAN DO 02/17/21 Work/School Note: Work Release Form Date Seen in the Emergency Department: Feb 17, 2021 Return to Work: Feb 19, 2021 SULLY LAN DO Feb 17, 2021 22:51
[2021-02-17] MEDS ORDERED: NAPR500T8 PO (23:16)
--- NOTE | 2021-02-17 23:54 | Diagnostic Imaging Report ---
INDICATION: Right hand pain 3 views of the right hand show no fracture, dislocation or other acute abnormalities. IMPRESSION: Negative right hand. No change compared to 01/07/2018. Dictated by: Dictated on workstation # [id number]
== END 2021-02-17 23:25 | disposition home or self-care (01) ==
LOC: EDUNIT# 22:40 → ER 22:42
DX: S60.221A Contusion of right hand, initial encounter (principal); J45.909 Unspecified asthma, uncomplicated; W22.8XXA Striking against or struck by other objects, initial encounter
CPT/HCPCS: 73130

== ENCOUNTER 2022-10-26 22:55 | Emergency (ER) | payer SELFPAY ==
[~2022-10-26] VITALS: Ht 182.9 cm; Wt 122.5 kg
[~2022-10-26 22:55] MED LIST changes: +LIDO15SO6 MM; -LIDO20SO23 MM; +NAPR500T8 PO; +OMEP20TA56 PO; -OMEP20TA7 PO
[2022-10-26 23:07] VITALS: BP 134/99
[2022-10-26] MEDS ORDERED: ASPIRIN 81 MG CHEW (CHILDREN'S ASA) PO ONE (23:15)
[2022-10-26 23:25] LABS: BASOPHILS # (AUTO) 0.1 10^3/uL (0.0-0.1); BASOPHILS % (AUTO) 1 % (0-10); EOSINOPHILS # (AUTO) 0.1 10^3/uL (0.0-0.3); EOSINOPHILS % (AUTO) 1 % (0-10); HEMATOCRIT 46 % (40-54); HEMOGLOBIN 15.8 g/dL (13.3-17.7); LYMPHOCYTES # (AUTO) 2.4 10^3/uL (1.0-4.0); LYMPHOCYTES % (AUTO) 25 % (12-44); MEAN CORPUSCULAR HEMOGLOBIN 29 pg (25-34); MEAN CORPUSCULAR HGB CONC 35 g/dL (32-36); MEAN CORPUSCULAR VOLUME 84 fL (80-99); MEAN PLATELET VOLUME 12.8 fL (9.0-12.2); MONOCYTES # (AUTO) 0.6 10^3/uL (0.0-1.0); MONOCYTES % (AUTO) 6 % (0-12); NEUTROPHILS # (AUTO) 6.5 10^3/uL (1.8-7.8); NEUTROPHILS % (AUTO) 67 % (42-75); PLATELET COUNT 193 10^3/uL (130-400); WHITE BLOOD COUNT 9.6 10^3/uL (4.3-11.0)
[2022-10-26] MEDS ORDERED: KETOROLAC 30 MG/ML VIAL IVP STA (23:32)
[2022-10-26 23:41] LABS: ALANINE AMINOTRANSFERASE 25 U/L (0-55); ALBUMIN 5.2 GM/DL (3.2-4.5); ALKALINE PHOSPHATASE 54 U/L (40-136); AMYLASE 33 U/L (25-125); BILIRUBIN,TOTAL 1.2 MG/DL (0.1-1.0); BUN/CREATININE RATIO 12; CALCIUM 10.2 MG/DL (8.5-10.1); CARBON DIOXIDE 22 MMOL/L (21-32); CHLORIDE 105 MMOL/L (98-107); CREATINE KINASE 346 U/L (30-200); CREATININE SERUM 1.01 MG/DL (0.60-1.30); GFR ESTIMATED 107; GLUCOSE 86 MG/DL (70-105); INR 1.1 (0.8-1.4); LIPASE 21 U/L (8-78); MAGNESIUM 2.5 MG/DL (1.6-2.4); PARTIAL THROMBOPLASTIN TIME 32 SEC (24-35); POTASSIUM 3.6 MMOL/L (3.6-5.0); PROTHROMBIN TIME PATIENT 14.3 SEC (12.2-14.7); SODIUM 139 MMOL/L (135-145)
[2022-10-26 23:42] LABS: FIBRIN DEGRADATION PRODUCTS < 0.22 UG/ML (0.00-0.49)
[2022-10-26 23:45] LABS: CLARITY,URINE CLEAR; COLOR,URINE DARK YELLOW; GLUCOSE, URINE (UA) NEGATIVE (NEGATIVE); KETONES,URINE 1+ (NEGATIVE); LEUKOCYTE ESTERASE ,URINE NEGATIVE (NEGATIVE); NITRITE,URINE NEGATIVE (NEGATIVE); PROTEIN,URINE TRACE (NEGATIVE)
[2022-10-26] MEDS ORDERED: LACTATED RINGERS 1,000 ML IV ONE (23:45)
[2022-10-26 23:48] LABS: CREATINE KINASE MB 3.2 NG/ML (<6.6)
--- NOTE | 2022-10-26 23:50 | ED Chest Pain ---
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 HAS HAD THIS BEFORE, BUT NOT THIS BAD HAS NOT BEEN DIAGNOSED WITH ANY CARDIAC PROBLEMS HAD "SINUS INFECTION A COUPLE OF WEEKS AGO", BUT NO ILLNESS SINCE THEN, AND NO RECENT ANTIBIOTICS PCP: NONE Allergies and Home Medications Allergies Coded Allergies: hydrocodone (Verified Allergy, Severe, RASH , 05/30/18) Patient Home Medication List Home Medication List Reviewed: Yes Naproxen (Naproxen) 500 Mg Tablet., 500 MG PO BID Prescribed by: SULLY LAN on 02/17/21 8776 Review of Systems Review of Systems Constitutional: no symptoms reported EENTM: No Symptoms Reported Respiratory: See HPI Cardiovascular: See HPI Gastrointestinal: No Symptoms Reported Genitourinary: No Symptoms Reported Musculoskeletal: no symptoms reported Skin: no symptoms reported Psychiatric/Neurological: Anxiety Endocrine: No Symptoms Reported Hematologic/Lymphatic: No Symptoms Reported Past Awlylpz-Ooohnp-Gzwzig Hx Patient Social History Tobacco Use?: Yes Tobacco type used: Cigarettes Smoking Status: Current Everyday Smoker Substance use?: Yes Substance type: Marijuana Substance frequency: Daily Alcohol Use?: Yes Alcohol Frequency: Once in a while Immunizations Up To Date Tetanus Booster (TDap): Unknown PED Vaccines UTD: Yes Seasonal Allergies Seasonal Allergies: Yes Past Medical History Surgery/Hospitalization HX: dental, t/a Surgeries: Yes (DENTAL SURGERY TODDLER;L BUTTOCK HEMATOMA EVACUATED 09/29/[address] WHITE ) Adenoidectomy, Appendectomy, Tonsillectomy Respiratory: Yes (ASTHMA CHILD) Asthma Cardiac: No Neurological: No Reproductive Disorders: No Sexually Transmitted Disease: No Genitourinary: No Gastrointestinal: Yes Chronic Constipation Musculoskeletal: Yes (RIGHT HAND BOXER'S FRACTURE AGE 14--NO SURGERY) Chronic Back Pain, Fractures Endocrine: No HEENT: Yes (TONSILLECTOMY; DENTAL SURGERY CHILD) Tonsilitis Cancer: No Psychosocial: No Integumentary: Yes (TATTOOS) Blood Disorders: No Family Medical History Family history: Diabetes mellitus grandmother paternal aunt aunt uncle paternal No Pertinent Family Hx TESTED + FOR COVID-19 ON 06/30/20--NO SIGNFICANT ILLNESS, NO HOSPITALIZATION OR TREATMENT SOCIAL HISTORY: -SMOKES 1 PPD -ETOH--OCCASIONAL USE -DRUGS--ADMITS TO DAILY MARIJUANA USE; UDS ON 10/26/22 POSITIVE FOR COCAINE, THC, BENZODIAZEPINES, OPIATES Physical Exam Vital Signs Vital Signs - First Documented 10/26/22 23:07 Temp 36.4 Pulse 78 Resp 16 B/P (MAP) 134/99 (111) Pulse Ox 99 O2 Delivery Room Air Capillary Refill : Height, Weight, BMI Height: 5'11.00" Weight: 240lbs. 0.0oz. 108.252708bw; 36.00 BMI Method:Stated General Appearance: WD/WN, Obese, Other (VERY DRAMATIC, HOLDING BOTH HANDS OVER LEFT UPPER CHEST, KEEPS EYES CLOSED AT ALL TIMES. REEKS OF MARIJUANA. 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 Norm as Tested Skin: Normal Color, Warm/Dry, Tattoos/Piercings (EXTENSIVE TATTOOS AND MULTIPLE PIERCINGS) Progress/Results/Core Measures Results/Orders Lab Results Laboratory Tests Test 10/26/22 23:13 10/26/22 23:27 Range/Units White Blood Count 9.6 4.3-11.0 10^3/uL Red Blood Count 5.45 4.30-5.52 10^6/uL Hemoglobin 15.8 13.3-17.7 g/dL Hematocrit 46 40-54 % Mean Corpuscular Volume 84 80-99 fL Mean Corpuscular Hemoglobin 29 25-34 pg Mean Corpuscular Hemoglobin Concent 35 32-36 g/dL Red Cell Distribution Width 12.1 10.0-14.5 % Platelet Count 193 130-400 10^3/uL Mean Platelet Volume 12.8 H 9.0-12.2 fL Immature Granulocyte % (Auto) 0 % Neutrophils (%) (Auto) 67 42-75 % Lymphocytes (%) (Auto) 25 12-44 % Monocytes (%) (Auto) 6 0-12 % Eosinophils (%) (Auto) 1 0-10 % Basophils (%) (Auto) 1 0-10 % Neutrophils # (Auto) 6.5 1.8-7.8 10^3/uL Lymphocytes # (Auto) 2.4 1.0-4.0 10^3/uL Monocytes # (Auto) 0.6 0.0-1.0 10^3/uL Eosinophils # (Auto) 0.1 0.0-0.3 10^3/uL Basophils # (Auto) 0.1 0.0-0.1 10^3/uL Immature Granulocyte # (Auto) 0.0 0.0-0.1 10^3/uL Prothrombin Time 14.3 12.2-14.7 SEC INR Comment 1.1 0.8-1.4 Activated Partial Thromboplast Time 32 24-35 SEC D-Dimer < 0.22 0.00-0.49 UG/ML Sodium Level 139 135-145 MMOL/L Potassium Level 3.6 3.6-5.0 MMOL/L Chloride Level 105 98-107 MMOL/L Carbon Dioxide Level 22 21-32 MMOL/L Anion Gap 12 5-14 MMOL/L Blood Urea Nitrogen 12 7-18 MG/DL Creatinine 1.01 0.60-1.30 MG/DL Estimat Glomerular Filtration Rate 107 BUN/Creatinine Ratio 12 Glucose Level 86 70-105 MG/DL Calcium Level 10.2 H 8.5-10.1 MG/DL Corrected Calcium 8.5-10.1 MG/DL Magnesium Level 2.5 H 1.6-2.4 MG/DL Total Bilirubin 1.2 H 0.1-1.0 MG/DL Aspartate Amino Transf (AST/SGOT) 32 5-34 U/L Alanine Aminotransferase (ALT/SGPT) 25 0-55 U/L Alkaline Phosphatase 54 40-136 U/L Total Creatine Kinase 346 H 30-200 U/L Creatine Kinase MB 3.2 <6.6 NG/ML Myoglobin 86.3 10.0-92.0 NG/ML Troponin I < 0.028 <0.028 NG/ML B-Type Natriuretic Peptide < 10.0 <100.0 PG/ML Total Protein 8.0 6.4-8.2 GM/DL Albumin 5.2 H 3.2-4.5 GM/DL Amylase Level 33 25-125 U/L Lipase 21 8-78 U/L Serum Alcohol < 10 <10 MG/DL Urine Color DARK YELLOW Urine Clarity CLEAR Urine pH 6.0 5-9 Urine Specific [place] >=1.030 1.016-1.022 Urine Protein TRACE H NEGATIVE Urine Glucose (UA) NEGATIVE NEGATIVE Urine Ketones 1+ H NEGATIVE Urine Nitrite NEGATIVE NEGATIVE Urine Bilirubin 1+ H NEGATIVE Urine Urobilinogen 1.0 < = 1.0 MG/DL Urine Leukocyte Esterase NEGATIVE NEGATIVE Urine RBC (Auto) NEGATIVE NEGATIVE Urine RBC NONE /HPF Urine WBC NONE /HPF Urine Crystals NONE /LPF Urine Bacteria NEGATIVE /HPF Urine Casts NONE /LPF Urine Mucus LARGE H /LPF Urine Culture Indicated NO Urine Opiates Screen POSITIVE H NEGATIVE Urine Oxycodone Screen NEGATIVE NEGATIVE Urine Methadone Screen NEGATIVE NEGATIVE Urine Propoxyphene Screen NEGATIVE NEGATIVE Urine Barbiturates Screen NEGATIVE NEGATIVE Ur Tricyclic Antidepressants Screen NEGATIVE NEGATIVE Urine Phencyclidine Screen NEGATIVE NEGATIVE Urine Amphetamines Screen NEGATIVE NEGATIVE Urine Methamphetamines Screen NEGATIVE NEGATIVE Urine Benzodiazepines Screen POSITIVE H NEGATIVE Urine Cocaine Screen POSITIVE H NEGATIVE Urine Cannabinoids Screen POSITIVE H NEGATIVE My Orders Orders - SULLY LAN DO Ed Iv/Invasive Line Start (10/26/22 23:08) Ekg Tracing (10/26/22 23:08) O2 (10/26/22 23:08) Monitor-Rhythm Ecg Trace Only (10/26/22 23:08) Cbc With Automated Diff (10/26/22 23:08) Magnesium (10/26/22 23:08) Chest 1 View, Ap/Pa Only (10/26/22 23:08) Ekg Tracing (10/26/22 23:08) Comprehensive Metabolic Panel (10/26/22 23:08) Myoglobin Serum (10/26/22 23:08) Protime With Inr (10/26/22 23:08) Partial Thromboplastin Time (10/26/22 23:08) O2 (10/26/22 23:08) Ed Iv/Invasive Line Start (10/26/22 23:08) Creatine Kinase (10/26/22 23:08) Creatine Kinase Mb (10/26/22 23:08) Lipase (10/26/22 23:08) Amylase (10/26/22 23:08) Bnp Oscar (10/26/22 23:08) Aspirin Chewable Tablet (Baby Aspirin Ch (10/26/22 23:15) Fibrin Degradation Products (10/26/22 23:13) Troponin I Oscar (10/26/22 23:13) Alcohol (10/26/22 23:32) Drug Screen Stat (Urine) (10/26/22 23:32) Ua Culture If Indicated (10/26/22 23:32) Ed Iv/Invasive Line Start (10/26/22 23:32) Lactated Ringers (Lr 1000 Ml Iv Solution (10/26/22 23:45) Ketorolac Injection (Toradol Injection) (10/26/22 23:32) Ed Iv/Invasive Line Start (10/27/22 00:32) Lactated Ringers (Lr 1000 Ml Iv Solution (10/27/22 00:45) Medications Given in ED Current Medications Medications Dose Ordered Sig/Maria Ines Route Start Time Stop Time Status Last Admin Dose Admin Aspirin 324 mg ONCE ONCE PO 10/26/22 23:15 10/26/22 23:16 DC 10/26/22 23:33 324 MG Vital Signs/I&O 10/26/22 23:07 Temp 36.4 Pulse 78 Resp 16 B/P (MAP) 134/99 (111) Pulse Ox 99 O2 Delivery Room Air Progress Progress Note : Progress Note CHEST PAIN LABS AND EKG AND CXR ORDERED PT WAS GIVEN: -ASPIRIN -TORADOL PAIN IMPROVED WITH TORADOL DISCUSSED TEST RESULTS WITH PT, AND [id number], INCLUDING HIS POSITIVE DRUG SCREEN FOR COCAINE, OPIATES, THC, AND BENZODIAZEPINES DISCUSSED THAT HIS CHEST PAIN MAY BE DIRECTLY RELATED TO HIS COCAINE USE--HE DOES NOW ADMIT TO USING COCAINE, BUT CLAIMS HE "HASN'T USED IT FOR AWHILE". ADVISED THAT HE SHOULD STAY IN ER AND WILL DO 3 HOUR REPEAT EKG AND TROPONIN. PT AGREED TO PLAN WITH ME 0040--PT IS NOW EXTREMELY BELLIGERENT, CURSING, EXTREMELY HOSTILE TO ER STAFF, AND NOW STATES HE IS NOT STAYING FOR REPEAT TESTS. HE REFUSED TO SIGN AMA PAPERS OR RECEIVE AMA DISCHARGE PAPERS AND STORMED OUT OF ER. RN WAS ABLE TO REMOVE IV PRIOR TO PT LEAVING. SEE NURSING NOTES FOR DETAILS. Initial ECG Impression Date: Oct 26, 2022 Initial ECG Impression Time: 23:12 Initial ECG Rate: 76 Initial ECG Rhythm: Normal Sinus (SINUS ARRHYTHMIA) Initial ECG Intervals DE 129 QRS 110 QT/QTC 372/403 Initial ECG Impression: Nonspecific Changes Initial ECG Comparisson: Unchanged Comment INTERPRETED BY ME Diagnostic Imaging Comments CXR--PENDING RADIOLOGIST REVIEW -NO ACUTE PROCESS Reviewed: Reviewed by Me Departure Impression Primary Impression: Left against medical advice Additional Impressions: Chest pain Cocaine use Polysubstance abuse Disposition: 07 AGAINST MEDICAL ADVICE Condition: Against Medical Advice Departure-Patient Inst. Referrals: NO,LOCAL PHYSICIAN (PCP/Family) Primary Care Physician SULLY LAN DO Oct 26, 2022 23:50
[2022-10-27 00:03] LABS: AMPHETAMINE SCREEN, URINE NEGATIVE (NEGATIVE); BARBITURATE SCREEN URINE NEGATIVE (NEGATIVE); BENZODIAZEPINES SCREEN URINE POSITIVE (NEGATIVE); CANNABINOID SCREEN, URINE POSITIVE (NEGATIVE); COCAINE SCREEN URINE POSITIVE (NEGATIVE); METHADONE STAT NEGATIVE (NEGATIVE); OPIATE SCREEN URINE POSITIVE (NEGATIVE); OXYCODONE STAT NEGATIVE (NEGATIVE); PROPOXYPHENE STAT NEGATIVE (NEGATIVE); TRICYCLIC ANTIDEPRESSANTS SCRE NEGATIVE (NEGATIVE)
[2022-10-27 00:04] LABS: BACTERIA,URINE NEGATIVE /HPF
[2022-10-27] MEDS ORDERED: LACTATED RINGERS 1,000 ML IV ONE (00:45)
[2022-10-27 01:06] LABS: BILIRUBIN,URINE 1+ (NEGATIVE)
--- NOTE | 2022-10-27 07:40 | Diagnostic Imaging Report ---
EXAMINATION: Chest radiograph, portable AP view. DATE: 10/26/2022 11:33 PM. INDICATION: 22-year-old male, chest pain. COMPARISON: August 12, 2019. FINDINGS: The heart size and mediastinal contours are unchanged. There is no identified pneumothorax. There is no large pleural effusion. There is no identified focal airspace consolidation. IMPRESSION: No identified acute cardiopulmonary abnormality. Dictated by: Dictated on workstation # [id number]
== END 2022-10-27 00:42 | disposition left against medical advice (07) ==
LOC: EDUNIT# 22:55 → ER 22:57
DX: R07.89 Other chest pain (principal); F19.10 Other psychoactive substance abuse, uncomplicated; F14.90 Cocaine use, unspecified, uncomplicated; E66.9 Obesity, unspecified; F17.210 Nicotine dependence, cigarettes, uncomplicated; Z68.36 Body mass index [BMI] 36.0-36.9, adult; Z86.16 Personal history of COVID-19
CPT/HCPCS: 71045; 80053; 80306; 81000; 82150; 82550; 82553; 83690; 83735; 83874; 83880; 84484; 85025; 85379; 85610; 85730; 93005; 93041; 99284; G0480; 36415; 80320